=== PATIENT | female | born 1980 | race Caucasian/White ===

== ENCOUNTER 2019-04-23 14:41 | Outpatient (CLI) | payer MEDICAID, SELFPAY | END 2019-04-23 15:01 | PROVIDERS: PCP Family Medicine; Visit Provider Family Medicine | DX: R69 Illness, unspecified (principal) ==

== ENCOUNTER 2019-08-21 11:49 | Emergency (ER) | payer MEDICAID, SELFPAY ==
[2019-08-21 11:52] VITALS: BP 170/116; PULSE 129; RESP 20; TEMP 36.8; O2SAT 98
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
[2019-08-21] MEDS: LORazepam 1 MG TAB PO (12:18)
[2019-08-21 12:23] LABS: Bilirubin Small (Negative); Blood Trace-intact (Negative); Clarity Sl Cloudy (Clear); Glucose Negative (Negative); Ketones 40 mg/dL (Negative); Leukocyte Esterase Negative (Negative); Nitrite Negative (Negative); Specific Gravity >= 1.030 (1.005-1.025); Urobilinogen 0.2 EU/dL (Up TO 0.2); pH 5.5 (5-8)
--- NOTE | 2019-08-21 12:33 | NUR.NOTE ---
Nursing Note: mental health has arrived.
[2019-08-21 12:39] LABS: *AMPHETAMINES SCREEN URINE Negative (Negative); *BARBITURATES SCREEN URINE Negative (Negative); *BENZODIAZEPINES SCREEN URINE Negative (Negative); Cannabinoids THC POSITIVE (Negative); Cocaine Screen,Urine Negative (Negative); METHADONE URINE SCREEN Negative (Negative); OPIATES URINE SCREEN Negative (Negative)
[2019-08-21 12:44] LABS: Tricyclic Antidepressants Negative (Negative)
[2019-08-21 12:45] LABS: C & S Indicated? No/Sq. Contamination
[2019-08-21 13:19] LABS: ALT 27 U/L (14-59); AST 19 U/L (15-37); Albumin 4.1 g/dL (3.4-5.0); Alkaline Phosphatase 74 U/L (46-116); Anion Gap 10.5 mmol/L (3-11); BUN 17 mg/dL (7-18); Bilirubin, Total 0.6 mg/dL (0.2-1.0); CO2 26.5 mmol/L (21.0-32.0); CREATININE 0.76 mg/dL (0.55-1.02); Calcium 8.7 mg/dL (8.5-10.1); Chloride 107 mmol/L (98-107); ETHANOL BLOOD < 3.0 mg/dL (<3); Glucose 91 mg/dL (74-106); Potassium 3.6 mmol/L (3.5-5.1); Sodium 144 mmol/L (136-145); TSH (W/Ref FT4) 0.69 uIU/mL (0.36-3.74); Total Protein 7.1 g/dL (6.4-8.2)
[2019-08-21 13:24] LABS: Acetaminophen < 2 ug/mL (10-30)
[2019-08-21 13:43] VITALS: BP 130/79; PULSE 85; RESP 22; TEMP 36.8; O2SAT 98
[2019-08-21] MEDS: Ondansetron O.D.T. 4 MG TABEF PO (13:44)
--- NOTE | 2019-08-21 13:47 | NUR.NOTE ---
Nursing Note: Pt states she felt weird and nauseas. VS obtained and WNL. made aware of pt vomitting up lunch in emesis bag- mostly fluids with some undigested food. Zofran 4mg ODT given per verbal order. Pt states she received her suboxone this morning and hasnt missed any doses, denies any other illicit drug use or medication use that could cause withdrawal symptoms.
== END 2019-08-21 14:55 | disposition other institution (70) ==
PROVIDERS: Emergency Provider Emergency Medicine; PCP Family Medicine
DX: F41.8 Other specified anxiety disorders (principal); S70.12XA Contusion of left thigh, initial encounter; F90.9 Attention-deficit hyperactivity disorder, unspecified type; W50.0XXA Accidental hit or strike by another person, initial encounter
CPT/HCPCS: 36415; 80053; 80307; 81025; 99283; 80320; 80329; 81003; 81015; 84443

== ENCOUNTER 2020-01-03 12:18 | Outpatient (CLI) | payer MEDICAID, SELFPAY ==
[2020-01-05 12:20] LABS: SARS-CoV-2 RNA Undetected (Undetected); SARS-CoV-2 Specimen Source Nasopharynx
== END 2020-01-03 12:38 ==
PROVIDERS: PCP Family Medicine; Visit Provider Family Medicine
DX: R05 Cough (principal); R50.9 Fever, unspecified; Z11.59 Encounter for screening for other viral diseases
CPT/HCPCS: 87449; U0003

== ENCOUNTER 2020-03-04 08:26 | Outpatient (CLI) | payer MEDICAID, SELFPAY ==
[2020-03-05 12:56] LABS: COVID-19 RT-PCR Result NEGATIVE (Negative)
== END 2020-03-04 08:46 ==
PROVIDERS: PCP Family Medicine; Visit Provider Family Medicine
DX: Z11.59 Encounter for screening for other viral diseases (principal)
CPT/HCPCS: U0003

== ENCOUNTER 2020-12-06 17:21 | Inpatient (IN) | payer MEDICAID, SELFPAY ==
--- NOTE | 2020-12-06 17:27 | NUR.NOTE ---
Nursing Note: PTS DAUGHTER [phone]
[2020-12-06 17:36] VITALS: BP 130/64; PULSE 121; RESP 16; TEMP 37.1; O2SAT 98
--- NOTE | 2020-12-06 17:43 | ED.GENADUL_ITS ---
Discharge Plan Disposition Patient Disposition: [facility] INPATIENT Condition: Stable Discharge Details Chief Complaint: PsychEval Clinical Impression: Depression Primary Care Provider: Emmanuel Morales ED Provider: Joshua Cassidy Home Meds and New Rx's Prescriptions: No Action dicyclomine 10 mg capsule 10 mg PO TID Qty: 90 RF: 5 bacitracin zinc [Antibiotic (bacitracin zinc)] 500 unit/gram ointment 1 applic TP Q12H Qty: 56 RF: 0 Daily Probiotic (S. boulardii) 250 mg capsule 250 mg PO BID Qty: 60 RF: 5 buprenorphine-naloxone 8-2 mg tablet, sublingual 10 mg Sublingual DAILY RF: 0 albuterol sulfate [Ventolin HFA] 90 mcg/actuation HFA aerosol inhaler 2 puff IH QID PRN (Reason: shortness of breath or wheezing) Qty: 6.7 RF: 1 methylphenidate HCl [Ritalin] 20 mg Tablet 20 mg PO TID RF: 0 gabapentin 600 mg tablet 600 mg PO BID RF: 0 clonidine HCl 0.1 mg tablet 0.1 mg PO TID RF: 0 Medical Decision Making 40-year-old female presents from home complaining of anxiety, worsening mood, thoughts of harming herself. She denies any specific plan. She notes poor sleep, easily brought to tears, and relates this due to stress of being currently homeless. She is stable. Exam does reveal a small area of excoriated skin on her left buttock. This was dressed with bacitracin and a Band-Aid. She is given 1 mg of Ativan for anxiolysis. She underwent medical screening examination including laboratory analysis. She is medically stable for further psychiatric evaluation. Care management was consulted and care plan initiated. Patient's diagnostic studies are reassuring. CBC shows a white count of 9, hematocrit 38, platelets 210. Chemistries with unremarkable BUN and creatinine. Alcohol level negative. Urine drug screen positive for THC. Following interview with mental health screener, patient agrees to voluntary admission awaiting psychiatric disposition. HPI General Mode of arrival: ambulatory . Date/Time Provider Initiated Documentation: 12/06/20 17:22 . Limitations to Documentation: no limitations . Information obtained by: patient . History of Present Illness 40 year old F presents to the emergency department with the chief complaint of Anxiety, suicidal ideation, described as moderate, Quality is described as constant, Patient reports no radiation. Patient started experiencing this day(s) and it has been constant. No relieving factors improve symptom(s), No exacerbating factors reported . Patient notes loss of appetite and other (Poor sleep, tearful). Patient did receive the following treatments prior to arrival, none Related Data Home Medications Medication Instructions Recorded Confirmed buprenorphine 8 mg-naloxone 2 mg 10 mg SUBLINGUAL DAILY tab 04/17/19 12/06/20 sublingual tablet methylphenidate HCl [Ritalin] 20 mg PO TID 08/21/19 02/04/20 Saccharomyces boulardii 250 mg 250 mg PO BID #60 cap 02/04/20 02/04/20 capsule bacitracin zinc 500 unit/gram 1 applic TP Q12H #56 gm 02/04/20 02/04/20 topical ointment dicyclomine 10 mg capsule 10 mg PO TID #90 cap 02/04/20 02/04/20 albuterol sulfate 90 mcg/actuation 2 puff IH QID PRN #6.7 gm 06/06/20 aerosol inhaler clonidine HCl 0.1 mg PO TID 12/06/20 12/06/20 gabapentin 600 mg PO BID 12/06/20 12/06/20 Previous Rx's Medication Instructions Recorded Saccharomyces boulardii 250 mg 250 mg PO BID #60 cap 02/04/20 capsule bacitracin zinc 500 unit/gram 1 applic TP Q12H #56 gm 02/04/20 topical ointment dicyclomine 10 mg capsule 10 mg PO TID #90 cap 02/04/20 albuterol sulfate 90 mcg/actuation 2 puff IH QID PRN #6.7 gm 06/06/20 aerosol inhaler Allergies Allergy/AdvReac Type Severity Reaction Status Date / Time morphine Allergy Severe Hives Unverified 12/06/20 17:32 Penicillins Allergy Severe Skin Rash Unverified 12/06/20 17:32 dimethicone Allergy Intermediate Hives Unverified 12/06/20 17:32 [From A \T\ D Emollient] glycerin Allergy Intermediate Hives Unverified 12/06/20 17:32 [From A & D Emollient] stearyl alcohol Allergy Intermediate Hives Unverified 12/06/20 17:32 [From A \T\ D Emollient] codeine Allergy Mild hives Unverified 12/06/20 17:32 Carbapenems Allergy Unknown Unverified 12/06/20 17:32 Cephalosporins Allergy Unknown hives Unverified 12/06/20 17:32 quetiapine fumarate AdvReac Severe swelling Unverified 12/06/20 17:32 [From Seroquel] lisdexamfetamine AdvReac Intermediate arm pain; Verified 12/06/20 17:32 [From Vyvanse] menorrhagia promethazine AdvReac Intermediate anxiety Unverified 12/06/20 17:32 dinoprostone AdvReac Unknown Unverified 12/06/20 17:32 General Stated Complaint: PsychEval MICHAEL: 2 Review of Systems Narrative: 6 systems reviewed and otherwise negative [facility] Medical History (Updated 12/06/20 @ 19:38 by Joshua Cassidy MD) Abdominal pain Nausea Surgical History Cholecystectomy Oophrectomy, Both Family History Mother Alcohol abuse Father Alcohol abuse Brother No problems noted. Grandfather No problems noted. Grandfather Heart disease Grandmother Personal history of malignant neoplasm Grandmother No problems noted. Social History Smoking/Tobacco Use Status: Current every day Smoking risk assessment performed?: Yes Alcohol Intake: former Drug use: Occasionally Substance use type: marijuana Do you feel safe at home: Yes Do you feel safe in your relationship?: Yes Exam Narrative Exam Narrative: GEN: awake, alert, oriented 3. Pleasant, well groomed, interactive. HEAD: Normocephalic, atraumatic ENT: Mucous membranes moist, oropharynx unremarkable, External ear exam unremarkable EYES: PERRL, EOMI NECK: Full ROM, no HANG, no menigismus CHEST/RESP: Nontender, clear to auscultation bilateral, no wheeze/rhonchi/rales CARDIOVASCULAR: Regular and tachycardic, no murmur, rub franky. 2+ Rad pulse bilateral ABDOMEN: Soft, nontender, no mass. +Bowel sounds EXT: Full ROM, no edema, left posterior/superior buttock with 1 cm diameter excoriated area of skin. Neuro: Grossly normal neurologic exam, conversant, interactive. Psych: Speech pressured at times, thoughts congruent, affect anxious and tearful Course Vital Signs Vital signs: Vital Signs Temperature 37.1 C 12/06/20 17:36 Pulse 121 H 12/06/20 17:36 Respiratory Rate 16 12/06/20 17:36 Blood Pressure 130/64 12/06/20 17:36 Pulse Oximetry 98 12/06/20 17:36 Temperature 37.1 C 12/06/20 17:36 Temperature Source Oral 12/06/20 17:36 Pulse 121 H 12/06/20 17:36 Respiratory Rate 16 12/06/20 17:36 Respiratory Effort 12/06/20 17:41 Blood Pressure 130/64 12/06/20 17:36 Blood Pressure Position Sitting 12/06/20 17:36 Pulse Oximetry 98 12/06/20 17:36 Oxygen Delivery Method Room Air 12/06/20 17:36 Oxygen Flow Rate 0 12/06/20 17:36 Pain Level 5 12/06/20 17:36 Comment 12/06/20 17:36
[2020-12-06] MEDS: LORazepam 1 MG TAB PO (17:48)
--- NOTE | 2020-12-06 18:04 | NUR.NOTE ---
Nursing Note: this RN places pt's medication x 3 bottles and wallet into belongings bag with pt label on, bag placed in secure location.
[2020-12-06 18:06] LABS: Bilirubin Negative (Negative); Blood Negative (Negative); Clarity Clear (Clear); Glucose Negative (Negative); Ketones Negative (Negative); Leukocyte Esterase Negative (Negative); Nitrite Negative (Negative); Urobilinogen 0.2 EU/dL (Up TO 0.2); pH 6.5 (5-8)
--- NOTE | 2020-12-06 18:12 | CMSP_ITS ---
- If Service Date Differs Date of service: 12/06/20 Time of Service: 18:13 Care Management Safety Plan Status: Voluntary Chief Complaint: Linda is a 40 year old female who is homeless. She presents in the ED today due to suicidal ideation and fears she is having a nervous breakdown. Patient is confused and presents as manic with disorganized thinking. Linda met with Annie, [facility] crisis screener, via zoom for an assessment. Annie reports Linda could not be properly assessed due to her inability to think clearly. Linda is, therefore, remaining at [facility] voluntarily for the night with a plan for [facility] to reassess her in the morning. VOLUNTARY FOR INPATIENT PSYCHIATRIC STABILIZATION. Patient is appropriate in all interactions since arriving at [facility]; Pt has demonstrated appropriate coping and communication skills, has articulated his or her needs and concerns and is fully engaged during staff interactions. Safety plan has been established with patient, and care team, to adhere to patient goals, identify restrictions based on behavioral status, address nutrition, and determine allowed personal belongings, tools for hygiene and personal care. Determine level of activity including ambulation, level of supervision, visitors, and determine privileges based on behaviors and level of engagement by pt. SAFETY PLAN: 1. Will remain on suicide precautions and in paper clothes. 2. Will remain in room under direct supervision of one-on-one staff at all times provided by [employer], ANALYTICAL ENGINEER, HOME SECURITY ALARM INSTALLER active directory architect. 3. May have paper cups, plates, finger foods as well as a cardboard spoon with which to eat meals. 4. Follow [facility] Management of the Admitted Behavioral Health Patient policy. 5. Shower permitted at RN discretion. 6. No personal belongings. 7. No visitors per [facility] Covid Policy. 8. Activities: Television when available, coloring books, crayons, and other activities at nursing discretion. 9. Bathroom privileges: Must be accompanied by staff while in the ED. If moved to Med/Surg, may use the bathroom available in the room without supervision. 10. Phone use at RN discretion. 11. Due to VOLUNTARY status, if patient wishes to leave [facility], staff will contact [facility] Crisis Screener ([phone]) and On-Call Mold Dumper ([phone]) as soon as possible. In the event of elopement, notify [facility] Police ([phone]). Patient is currently voluntarily at [facility] and seeking inpatient admission when a bed becomes available. [facility] Frontline Cold Header will continue seeking placement. Please contact the Shot Man Mold Dumper ([phone]) and [facility] Cold Header ([phone]) for any needed changes in the Safety Plan. Safety plan has been provided to interdepartmental care team.
--- NOTE | 2020-12-06 18:12 | PDOC.CMSAFED ---
- If Service Date Differs Date of service: 12/06/20 Time of Service: 18:13 Care Management Safety Plan Status: Voluntary Chief Complaint: Linda is a 40 year old female who is homeless. She presents in the ED today due to suicidal ideation and fears she is having a nervous breakdown. Patient is confused and presents as manic with disorganized thinking. Linda met with Annie, [facility] crisis screener, via zoom for an assessment. Annie reports Linda could not be properly assessed due to her inability to think clearly. Linda is, therefore, remaining at [facility] voluntarily for the night with a plan for [facility] to reassess her in the morning. VOLUNTARY FOR INPATIENT PSYCHIATRIC STABILIZATION. Patient is appropriate in all interactions since arriving at [facility]; Pt has demonstrated appropriate coping and communication skills, has articulated his or her needs and concerns and is fully engaged during staff interactions. Safety plan has been established with patient, and care team, to adhere to patient goals, identify restrictions based on behavioral status, address nutrition, and determine allowed personal belongings, tools for hygiene and personal care. Determine level of activity including ambulation, level of supervision, visitors, and determine privileges based on behaviors and level of engagement by pt. SAFETY PLAN: 1. Will remain on suicide precautions and in paper clothes. 2. Will remain in room under direct supervision of one-on-one staff at all times provided by [employer], KEYBOARD INSTRUMENT TUNER, BAR TACKER SEWING MACHINE lookback coordinator. 3. May have paper cups, plates, finger foods as well as a cardboard spoon with which to eat meals. 4. Follow [facility] Management of the Admitted Behavioral Health Patient policy. 5. Shower permitted at RN discretion. 6. No personal belongings. 7. No visitors per [facility] Covid Policy. 8. Activities: Television when available, coloring books, crayons, and other activities at nursing discretion. 9. Bathroom privileges: Must be accompanied by staff while in the ED. If moved to Med/Surg, may use the bathroom available in the room without supervision. 10. Phone use at RN discretion. 11. Due to VOLUNTARY status, if patient wishes to leave [facility], staff will contact [facility] Crisis Screener ([phone]) and On-Call Electronic Security Specialist ([phone]) as soon as possible. In the event of elopement, notify [facility] Police ([phone]). Patient is currently voluntarily at [facility] and seeking inpatient admission when a bed becomes available. [facility] Frontline Linen Folder will continue seeking placement. Please contact the Diaper Folder Electronic Security Specialist ([phone]) and [facility] Linen Folder ([phone]) for any needed changes in the Safety Plan. Safety plan has been provided to interdepartmental care team.
[2020-12-06 18:20] LABS: *AMPHETAMINES SCREEN URINE Negative (Negative); *BARBITURATES SCREEN URINE Negative (Negative); *BENZODIAZEPINES SCREEN URINE Negative (Negative); Cannabinoids THC POSITIVE (Negative); Cocaine Screen,Urine Negative (Negative); METHADONE URINE SCREEN Negative (Negative); OPIATES URINE SCREEN Negative (Negative)
[2020-12-06 18:21] LABS: Abs Immature Grans 0.02 10^3/uL (0.0-0.06); Absolute Basophil Count 0.09 10^3/uL (0.0-0.2); Absolute Eosinophil Count 0.24 10^3/uL (0.0-0.7); Absolute Lymphocyte Count 1.92 10^3/uL (1.2-3.4); Absolute Neutrophil Count 6.77 10^3/uL (1.2-6.7); Basophils % 0.9; Eosinophils % 2.5; HCT 38.2 % (36.0-46.0); HGB 12.6 g/dL (11.2-15.7); Immature Grans % 0.2; Lymphocytes % 19.9; MCH 30.4 pg (27.0-33.0); MPV 10.6 fL (8.0-11.0); Monocytes % 6.2; Neutrophils % 70.3; Nucleated RBC 0 %; Platelet Count 210 10^3/uL (130-400); RBC 4.15 10^6/uL (3.93-5.22); RDW 12.9 % (11.7-14.6); RDW-SD 43.7 fL; WBC 9.64 10^3/uL (4.4-10.8)
[2020-12-06 18:24] LABS: Tricyclic Antidepressants Negative (Negative)
[2020-12-06 18:43] LABS: ALT 20 U/L (14-59); AST 12 U/L (15-37); Albumin 3.5 g/dL (3.4-5.0); Alkaline Phosphatase 80 U/L (46-116); Anion Gap 9.8 mmol/L (3-11); BUN 15 mg/dL (7-18); Bilirubin, Total 0.4 mg/dL (0.2-1.0); CO2 24.2 mmol/L (21.0-32.0); CREATININE 0.8 mg/dL (0.55-1.02); Calcium 8.4 mg/dL (8.5-10.1); Chloride 106 mmol/L (98-107); Glucose 116 mg/dL (74-106); Potassium 4.1 mmol/L (3.5-5.1); Sodium 140 mmol/L (136-145); Total Protein 6.7 g/dL (6.4-8.2)
[2020-12-06 18:53] LABS: Acetaminophen 10 ug/mL (10-30); Salicylate 4.6 mg/dL (<2.8)
[2020-12-06 18:55] LABS: ETHANOL BLOOD < 3.0 mg/dL (<3)
[2020-12-06 19:06] LABS: COVID-19 PCR Negative (Negative); Influenza A PCR Negative (Negative); Influenza B PCR Negative (Negative); RSV PCR Negative (Negative)
--- NOTE | 2020-12-06 19:33 | PDOC.MHCN ---
Date of service: 12/06/20 Time of Service: 19:34 Mental Health Crisis Note Presenting Issue How did you arrive at the ED and why did you come: Pt arrivved tonight via her daughter due to complaints of being confused and feeling crazy. Precipitating Factors Pt denied SI and HI stating she has had thoughts but no real plan. She said that if she did have a plan it would have been done already. Disposition BEHAVIOR: Pt is trying to be engaged in the assessment however, clearly is struggling to do so. She is unable to organize her thoughts and is very emotional. EYE CONTACT: Pt's eye contact is sporadic as she is unable to sit still. MOOD: Pt reported that she feels that she is manic. She is presenting as manic to [facility] clinician as well. AFFECT: Pt's affect appears anxious and scared, APPETITE: Pt reported her apetite is poor. SLEEP(trouble falling/staying asleep: Pt reported her sleep is poor. Plan Unable to do a full plan of action with Pt as she is getting increasingly agitated through the assessment as she is unable to think clearly. She is agreeable to inpatient treatment. This clinician will re-assess t he Pt tomorrow and hopefully we can complete an assessment. This was shared with the ER doctor and critical care physician. Signature Clinician's Name/Title: Annie mSith MS, [facility] Emergency Services Clinician, [facility]
--- NOTE | 2020-12-06 20:02 | HPE_ITS ---
Date of service: 12/06/20 Time of Service: 20:03 Assessment and Plan Assessment and plan (1) Depression: Status: Chronic Assessment and plan: With SI and anxiety. Exacerbating factors of homelessness but staying with her grandmother, drug abuse disorder. Voluntary admission. PRN Ativan and/or Atarax for anxiety. Mental health screen completed. Disposition to inpatient psychiatric facility when bed available. Qualifiers: Active/Remission status: currently active Depression Type: major depressive disorder Major depression episode severity: severe Major depression recurrence: recurrent (2) IBS (irritable bowel syndrome): Status: Chronic Assessment and plan: Does now c/o mild abd discomfort Previously on dicyclomine 10mg po TID; will initiate. (3) Asthma: Status: Acute Assessment and plan: + tobacco use. No current exacerbation. PRN albuterol MDI (4) Smoker: Status: Acute Assessment and plan: Nicoderm patch prn if she desires; currently declines. (5) Substance abuse: Status: Acute Assessment and plan: Cont home buprenorphine/naloxone 8mg/2mg QAM at 0500. (6) Attention deficit hyperactivity disorder: Status: Acute Assessment and plan: Ritalin 20mg TID on home med list; continue. History of Present Illness History of Present Illness Chief Complaint: Suicidal ideation Narrative: This is a 40 year old female with a medical history of substance abuse, depression, ADHD, asthma, IBS, tobacco abuse. She presented to the emergency department with the chief complaint of Anxiety, suicidal ideation w/o a specific plan. She relates stress d/t being homeless. In the ED she was given 1 mg of Ativan for her anxiety. CBC and chemistries were unremarkable. Alcohol level was negative. Urine drug screen positive for THC. She was evaluated by mental health screener. She agrees to a voluntary admission with plan for transfer to a psychiatric facility. No fever, SOA, CP, N/V/abd pain, dysuria. No headache, visual changes. Deangelo endorses intermittent hot flashes and is currently experiencing them. Review of Systems All systems reviewed & are unremarkable except as noted in HPI and below [facility] Medical History (Updated 12/06/20 @ 20:13 by Naeem Lange MD) Abdominal pain Nausea Surgical History Cholecystectomy Oophrectomy, Both Family History Mother Alcohol abuse Father Alcohol abuse Brother No problems noted. Grandfather No problems noted. Grandfather Heart disease Grandmother Personal history of malignant neoplasm Grandmother No problems noted. Social History Smoking/Tobacco Use Status: Current every day Smoking risk assessment performed?: Yes Alcohol Intake: former Drug use: Occasionally Substance use type: marijuana Do you feel safe at home: Yes Do you feel safe in your relationship?: Yes Meds Home Medications and Allergies Allergies Allergy/AdvReac Type Severity Reaction Status Date / Time morphine Allergy Severe Hives Unverified 12/06/20 17:32 Penicillins Allergy Severe Skin Rash Unverified 12/06/20 17:32 dimethicone Allergy Intermediate Hives Unverified 12/06/20 17:32 [From A \T\ D Emollient] glycerin Allergy Intermediate Hives Unverified 12/06/20 17:32 [From A & D Emollient] stearyl alcohol Allergy Intermediate Hives Unverified 12/06/20 17:32 [From A \T\ D Emollient] codeine Allergy Mild hives Unverified 12/06/20 17:32 Carbapenems Allergy Unknown Unverified 12/06/20 17:32 Cephalosporins Allergy Unknown hives Unverified 12/06/20 17:32 quetiapine fumarate AdvReac Severe swelling Unverified 12/06/20 17:32 [From Seroquel] lisdexamfetamine AdvReac Intermediate arm pain; Verified 12/06/20 17:32 [From Vyvanse] menorrhagia promethazine AdvReac Intermediate anxiety Unverified 12/06/20 17:32 dinoprostone AdvReac Unknown Unverified 12/06/20 17:32 Home Medications Medication Instructions Recorded Confirmed Type buprenorphine 8 mg-naloxone 2 mg 10 mg SUBLINGUAL DAILY tab 04/17/19 12/06/20 History sublingual tablet methylphenidate HCl [Ritalin] 20 mg PO TID 08/21/19 02/04/20 History Saccharomyces boulardii 250 mg 250 mg PO BID #60 cap 02/04/20 02/04/20 Rx capsule bacitracin zinc 500 unit/gram 1 applic TP Q12H #56 gm 02/04/20 02/04/20 Rx topical ointment dicyclomine 10 mg capsule 10 mg PO TID #90 cap 02/04/20 02/04/20 Rx albuterol sulfate 90 mcg/actuation 2 puff IH QID PRN #6.7 gm 06/06/20 Rx aerosol inhaler clonidine HCl 0.1 mg PO TID 12/06/20 12/06/20 History gabapentin 600 mg PO BID 12/06/20 12/06/20 History Exam Const General: cooperative, anxious and diaphoretic Nutritional Appearance: thin Orientation: alert and oriented x3 Eyes Sclera: sclerae normal Pupils: PERRL Resp Effort & Inspection: normal respiratory effort Auscultation: clear to auscultation bilaterally Cardio Rate: regular rate Rhythm: regular rhythm Heart Sounds: S1 normal and S2 normal GI Palpation: soft and nontender Auscultation: normal bowel sounds Neuro General: moves all extremities Cranial Nerves: CN's II-XI intact bilaterally Cognition: normal cognition Speech: speech normal Extrem General: no pedal edema and no calf tenderness Psych Appearance: disheveled Mood: anxious mood Affect: anxious affect Thought Process: normal Results Labs Result diagrams: 12/06/20 18:15 12/06/20 18:15 Labs: Laboratory Results - last 24 hr 12/06/20 12/06/20 12/06/20 17:55 17:55 18:05 WBC RBC Hgb Hct MCV MCH MCHC RDW Plt Count MPV Immature Gran % Neutrophils % Lymphocytes % Monocytes % Eosinophils % Basophils % Nucleated RBC % Absolute Neutrophils Absolute Lymphocytes Absolute Monocytes Absolute Eosinophils Absolute Basophils Sodium Potassium Chloride Carbon Dioxide Anion Gap BUN Creatinine Estimated GFR/1.73 m2 Glucose Calcium Total Bilirubin AST ALT Alkaline Phosphatase Total Protein Albumin TSH Urine Color Yellow Urine Clarity Clear Urine pH 6.5 Ur Specific [place] 1.010 Urine Protein Negative Urine Ketones Negative Urine Blood Negative Urine Nitrite Negative Urine Bilirubin Negative Urine Urobilinogen 0.2 Ur Leukocyte Esterase Negative Urine Glucose Negative Salicylates Urine Opiates Screen Negative Urine Methadone Screen Negative Acetaminophen Ur Barbiturates Screen Negative Ur Tricyclics Screen Negative Ur Amphetamines Screen Negative U Benzodiazepines Scrn Negative Urine Cocaine Screen Negative Ur THC Screen Positive A Ethyl Alcohol COVID-19 Source Nasopharyx SARS-CoV-2 (PCR) Negative Influenza Type A (PCR) Negative Influenza Type B (PCR) Negative RSV (PCR) Negative 12/06/20 12/06/20 12/06/20 18:15 18:15 18:15 WBC 9.64 RBC 4.15 Hgb 12.6 Hct 38.2 MCV 92.0 MCH 30.4 MCHC 33.0 RDW 12.9 Plt Count 210 MPV 10.6 Immature Gran % 0.2 Neutrophils % 70.3 Lymphocytes % 19.9 Monocytes % 6.2 Eosinophils % 2.5 Basophils % 0.9 Nucleated RBC % 0 Absolute Neutrophils 6.77 H Absolute Lymphocytes 1.92 Absolute Monocytes 0.60 Absolute Eosinophils 0.24 Absolute Basophils 0.09 Sodium 140 Potassium 4.1 Chloride 106 Carbon Dioxide 24.2 Anion Gap 9.8 BUN 15 Creatinine 0.8 Estimated GFR/1.73 m2 >= 60.00 Glucose 116 H Calcium 8.4 L Total Bilirubin 0.4 AST 12 L ALT 20 Alkaline Phosphatase 80 Total Protein 6.7 Albumin 3.5 TSH 0.50 Urine Color Urine Clarity Urine pH Ur Specific [place] Urine Protein Urine Ketones Urine Blood Urine Nitrite Urine Bilirubin Urine Urobilinogen Ur Leukocyte Esterase Urine Glucose Salicylates 4.6 Urine Opiates Screen Urine Methadone Screen Acetaminophen 10 Ur Barbiturates Screen Ur Tricyclics Screen Ur Amphetamines Screen U Benzodiazepines Scrn Urine Cocaine Screen Ur THC Screen Ethyl Alcohol < 3.0 COVID-19 Source SARS-CoV-2 (PCR) Influenza Type A (PCR) Influenza Type B (PCR) RSV (PCR) Last Vital Signs Temp 37.1 C 12/06/20 17:36 Pulse 121 H 12/06/20 17:36 Resp 16 12/06/20 17:36 BP 130/64 12/06/20 17:36 Pulse Ox 98 12/06/20 17:36 COVID-19 Screening Have you, or household traveled for leisure in last 14 days?: No Had IN PERSON contact w/suspected or confirmed C-19 person: No
[2020-12-06 20:06] VITALS: BP 100/61; PULSE 74; RESP 14; TEMP 37.3; O2SAT 93
[2020-12-06 21:00] VITALS: BP 93/52; PULSE 63; RESP 16; TEMP 37.2; O2SAT 97
[2020-12-06 21:22] VITALS: BP 93/52; PULSE 63; RESP 17; TEMP 37.2; O2SAT 97
[2020-12-07 01:23] VITALS: BP 129/54
--- NOTE | 2020-12-07 01:29 | NUR.NOTE ---
Nursing Note:At 20:53 hrs.,Pt arrived in room 234, via wheelchair, Alert but drowsy due to sedation done at ER. Placed in stretcher bed and while doing admission questionnaires, pt was already snoring,unable to open eyes even when touched. At 01:00 hrs. She woke up and demanded for food. Peanut butter, jelly & chicken soup given and tolerated it well. Pt was assisted to toilet, she feels weak and druggy still,after she voided, she was holding her tummy and stated of having abdominal cramps. Pt asked for ambien, the technical writer explained that we dont give anymore sleeping after midnight, redirection like watching TV done and no futher voiced complaints.
[2020-12-07 02:40] VITALS: BP 105/63; PULSE 60; RESP 20; TEMP 37.3; O2SAT 98
[2020-12-07 02:58] VITALS: TEMP 37.3
[2020-12-07] MEDS: LORazepam 0.5 MG TAB PO ×2 (02:58→10:58)
[2020-12-07 03:36] VITALS: TEMP 37.3
[2020-12-07] MEDS: Acetaminophen 325 MG TAB 650 MG PO ×2 (03:36→08:05)
[2020-12-07] MEDS: cloNIDine 0.1 MG TAB PO ×2 (03:44→14:04)
[2020-12-07] MEDS: Gabapentin 600 MG TAB PO (03:45)
[2020-12-07] MEDS: Normal Saline 500 ML IV (04:08)
[2020-12-07] MEDS: Nicotine 14 MG/24 HR PATCH TD (04:16)
[2020-12-07] MEDS: Dicyclomine 10 MG CAP PO ×3 (04:24→14:04)
[2020-12-07 04:25] VITALS: BP 130/63; PULSE 96; RESP 13; TEMP 37; O2SAT 99
[2020-12-07] MEDS: Buprenorphine/Naloxone 4 mg/1 mg FILM 0.5 EACH SL (05:19)
[2020-12-07] MEDS: Buprenorphine/Naloxone 8 mg/2 mg FILM 1 EACH SL (05:19)
[2020-12-07 07:25] VITALS: BP 117/69; PULSE 63; RESP 16; TEMP 37.2; O2SAT 98
--- NOTE | 2020-12-07 07:45 | RT.EKG_ITS ---
APPROVED REPORT Exam: Resting ECG Patient Location: I HR:52 bpm ECG Measurements Heart Rate 52 AXIS AL 115 P 47 QRSd 79 QRS 75 QT 410 T 51 QTc 374 Conclusion Sinus bradycardia...rate< 60 Atrial premature complex...SV complex w/ short R-R interval
[2020-12-07] MEDS: hydrOXYzine HCL 25 MG TAB PO (08:05)
[2020-12-07] MEDS: Methylphenidate 10 MG TAB 20 MG PO ×2 (08:05→11:48)
--- NOTE | 2020-12-07 09:00 | DI.RAD_ITS ---
EXAM: XR PORTABLE CHEST AP CLINICAL HISTORY: Dyspnea, chest pain TECHNIQUE: 2D digital imaging was performed. COMPARISON: No exams were available for comparison FINDINGS: MEDIASTINUM: Normal. HEART: Normal. PULMONARY VASCULATURE: Normal. LUNGS: Clear. PLEURAL SPACE: No pleural effusion or pneumothorax. BONE:Within normal limits for the patient's age. OTHER FINDINGS:Normal. IMPRESSION: No acute pulmonary findings. DATA REPOSITORY: RADIATION DOSE DELIVERED:
[2020-12-07 09:54] LABS: D-Dimer 375 ng/mlFEU (<500)
[2020-12-07] MEDS: Albuterol HFA 8 GM 60 PUFF INH IH (10:25)
--- NOTE | 2020-12-07 11:24 | DI.VRAD_ITS ---
PROCEDURE INFORMATION: Exam: XR Chest Exam date and time: 12/07/2020 11:15 AM Age: 40 years old Clinical indication: Other: Dyspnea, chest pain TECHNIQUE: Imaging protocol: XR of the chest Views: 1 view. COMPARISON: No relevant prior studies available. FINDINGS: Lungs: Unremarkable. No consolidation. Pleural spaces: Unremarkable. No pleural effusion. No pneumothorax. Heart/Mediastinum: Unremarkable. No cardiomegaly. Bones/joints: Unremarkable. IMPRESSION: No acute findings. Dictated and Authenticated by: Kt Phan MD. Ordering:ROBERT[facility] Nena Hyde MD
--- NOTE | 2020-12-07 13:01 | PDOC.CMDIS ---
- If Service Date Differs Date of service: 12/07/20 Time of Service: 13:01 LACE Index Scoring Tool - Questions: Length of Stay (in days): 1 Acuity (Admit via E.D.?): Yes E.D. Visits: 1 - Answers: Total Score: 5 Risk of Readmission: Low Risk Care Management Discharge Reason for Hospitalization: Depression, suicidal ideation. Discharge Plan: Linda is discharged home. She will follow up with Edwina Kerns, psych specialist at [facility], on Tuesday, December 08, 2020 at 8:00 am. Linda will also check-in by telephone with [facility] emergency services this evening. She is driven home by her daughter, Bekah, via private vehicle. Patient/Family Education Needs: Nursing will review discharge instructions and follow up plan of care with patient. - MH Services (Omit if N/A) Current MH Services: [facility]
--- NOTE | 2020-12-07 13:32 | MHPN_ITS ---
Date of service: 12/07/20 Time of Service: 13:32 Mental Health Crisis Note Presenting Issue How did you arrive at the ED and why did you come: Pt arrived last night via her daughter for evaluation and placement. Precipitating Factors Pt deneid SI and HI. She denied plan and intent. Pt identified her children as her deterrents. Disposition BEHAVIOR: Pt is cooperative and engaged. She is presenting as less anxious as she was last night. EYE CONTACT: Pt makes good eye contact MOOD: Pt reported that she is still anxious but feeling much better. AFFECT: Affect is normal APPETITE: Pt reported appetite has decreased. SLEEP(trouble falling/staying asleep: Pt reported poor sleep in general. Plan Pt reported that she knows she is in crisis when she becomes hyper anxious and unable to think and speak. She reported that when she gets that way she goes to the hospital. She did not identify any natural supports and her professional ones are through [facility]. She does not have any thing she does for self-care. She stated the one thing worth living for is her kids. She is not currently working with anyone for counseling so this clinician will put a referral in for her. She has a scheduled appointment with a PMHNP, Edwina Kerns tomorrow at 8:30am that will be her first appointment since Almita Weaver left [facility]. She agrees to call this evening for a check in and was reminded of [facility]' 28/04 crisis line should she need additional supports. Signature Clinician's Name/Title: Annie Smith MS, [facility] Emergency Services Clinician, [facility]
--- NOTE | 2020-12-07 13:52 | DSE_ITS ---
Date of service: 12/07/20 Time of Service: 13:52 DS: Diagnosis Discharge Diagnosis (1) Depression: Status: Chronic Asessment and Plan: Situational exacerbation secondary to recent homelessness. She is living with her grandmother. (2) IBS (irritable bowel syndrome): Status: Chronic Asessment and Plan: Resume dicyclomine and probiotics. (3) Asthma: Status: Acute Asessment and Plan: Stable. Worsened by ongoing tobacco use. (4) Smoker: Status: Acute Asessment and Plan: Smoking cessation encouraged. (5) Substance abuse: Status: Acute Asessment and Plan: THC on urine drug screen. (6) Attention deficit hyperactivity disorder: Status: Acute Asessment and Plan: Continues on Ritalin 3 times daily. Discharge Plan Disposition Patient Disposition: HOME Condition: Stable Discharge Details Reason For Visit: DEPRESSION, SUICIDAL IDEATIONS Admit Date/Time: 12/06/20 19:54 Admit Provider: Naeem Lange Attending Provider: Naeem Lange Primary Care Provider: Emmanuel Morales [facility] Course Hospital Course: 40-year-old female admitted for suicidal ideation. She has been troubled with perimenopausal symptoms, anxiety, diaphoresis, all exacerbated by recent homelessness. She has a history of illicit substance abuse but is only using marijuana at this time. She was seen by [facility] human services and is felt to be stable to return home with a plan for follow-up. She is to resume her usual medications. She has labs pending for estradiol and FSH. Home Meds and New Rx's Prescriptions: Continued dicyclomine 10 mg capsule 10 mg PO TID Qty: 90 RF: 5 bacitracin zinc [Antibiotic (bacitracin zinc)] 500 unit/gram ointment 1 applic TP Q12H Qty: 56 RF: 0 Daily Probiotic (S. boulardii) 250 mg capsule 250 mg PO BID Qty: 60 RF: 5 buprenorphine-naloxone 8-2 mg tablet, sublingual 10 mg Sublingual DAILY RF: 0 albuterol sulfate [Ventolin HFA] 90 mcg/actuation HFA aerosol inhaler 2 puff IH QID PRN (Reason: shortness of breath or wheezing) Qty: 6.7 RF: 1 methylphenidate HCl [Ritalin] 20 mg Tablet 20 mg PO TID RF: 0 gabapentin 600 mg tablet 600 mg PO BID RF: 0 clonidine HCl 0.1 mg tablet 0.1 mg PO TID RF: 0 Discharge Instructions Instructions: Menopause (GEN), Depression (DC) Additional Instructions: Call [facility] on Tuesday for follow-up appointment Stand Alone Forms: Nursing Discharge Form Referrals: Edwina Kerns [ [facility] STAFF PHYSICIAN] - 12/08/20 8:00 am (Call [facility] at [phone] tonight before 8:00pm for check-in call. ) Activity:: Activity as Tolerated Equipment/Supplies:: No Equipment Needed Diet:: As Tolerated Discharge Orders Discharge Orders: Discharge Order (Routine); Ordered 12/07/20 Ordered By: Todd Hayward DS: Summary Summary Time spent discussing smoking cessation with patient: 3 to 10 minutes Time Spent with Patient providing and/or coordinating discharge services: Greater than 30 minutes Status at Discharge Functional status at discharge: independent ambulation Overall status at discharge: patient is back to baseline Mental Status: mental status grossly normal Speech and Movement: speech and movement normal Mood: anxious mood Affect: normal affect Exam Narrative Exam Narrative: Patient lying quietly on the gurney in no apparent distress. She interacts well. She shows a full affect. She did appear somewhat anxious. She had no respiratory difficulties. Her skin was clear and free of any rashes. She was mildly diaphoretic. Psych Mental Status: mental status grossly normal Speech and Movement: speech and movement normal Mood: anxious mood Affect: normal affect DS: Data Vitals/I&O Vitals and I&O: Vital Signs Temperature 37.2 C 12/07/20 07:25 Temperature Source Skin 12/07/20 07:25 Pulse 63 12/07/20 07:25 Respiratory Rate 16 12/07/20 07:25 Respiratory Effort Non-Labored 12/06/20 21:22 Respiratory Depth Normal 12/06/20 21:22 Respiratory Pattern Normal 12/06/20 21:22 Blood Pressure 117/69 12/07/20 07:25 Blood Pressure Position Sitting 12/06/20 17:36 Pulse Oximetry 98 12/07/20 07:25 Oxygen Delivery Method Room Air 12/07/20 07:25 Oxygen Flow Rate 0 12/07/20 07:25 Pain Level 0 12/07/20 11:50 Comment 12/07/20 11:50 Intake & Output 12/06/20 12/07/20 12/07/20 23:59 11:59 23:59 Intake Total 600 / 880 280 / 880 Balance 600 / 880 280 / 880 Weight 55.7 kg Intake: Oral 600 / 880 280 / 880 Other: Urine Color Yellow Urine Appearance Clear Voiding Methods Toilet Data Completed and Pending Labs on day of discharge: Labs from last 24 hours 12/07/20 12/07/20 12/06/20 09:10 09:10 18:15 WBC 9.64 RBC 4.15 Hgb 12.6 Hct 38.2 MCV 92.0 MCH 30.4 MCHC 33.0 RDW 12.9 Plt Count 210 MPV 10.6 Immature Gran % 0.2 Neutrophils % 70.3 Lymphocytes % 19.9 Monocytes % 6.2 Eosinophils % 2.5 Basophils % 0.9 Nucleated RBC % 0 Absolute Neutrophils 6.77 H Absolute Lymphocytes 1.92 Absolute Monocytes 0.60 Absolute Eosinophils 0.24 Absolute Basophils 0.09 D-Dimer 375 Sodium Potassium Chloride Carbon Dioxide Anion Gap BUN Creatinine Estimated GFR/1.73 m2 Glucose Calcium Total Bilirubin AST ALT Alkaline Phosphatase Total Protein Albumin TSH Total Estradiol Pending FSH Pending Urine Color Urine Clarity Urine pH Ur Specific [place] Urine Protein Urine Ketones Urine Blood Urine Nitrite Urine Bilirubin Urine Urobilinogen Ur Leukocyte Esterase Urine Glucose Salicylates Urine Opiates Screen Urine Methadone Screen Acetaminophen Ur Barbiturates Screen Ur Tricyclics Screen Ur Amphetamines Screen U Benzodiazepines Scrn Urine Cocaine Screen Ur THC Screen Ethyl Alcohol COVID-19 Source SARS-CoV-2 (PCR) Influenza Type A (PCR) Influenza Type B (PCR) RSV (PCR) 12/06/20 12/06/20 12/06/20 18:15 18:15 18:05 WBC RBC Hgb Hct MCV MCH MCHC RDW Plt Count MPV Immature Gran % Neutrophils % Lymphocytes % Monocytes % Eosinophils % Basophils % Nucleated RBC % Absolute Neutrophils Absolute Lymphocytes Absolute Monocytes Absolute Eosinophils Absolute Basophils D-Dimer Sodium 140 Potassium 4.1 Chloride 106 Carbon Dioxide 24.2 Anion Gap 9.8 BUN 15 Creatinine 0.8 Estimated GFR/1.73 m2 >= 60.00 Glucose 116 H Calcium 8.4 L Total Bilirubin 0.4 AST 12 L ALT 20 Alkaline Phosphatase 80 Total Protein 6.7 Albumin 3.5 TSH 0.50 Total Estradiol FSH Urine Color Urine Clarity Urine pH Ur Specific [place] Urine Protein Urine Ketones Urine Blood Urine Nitrite Urine Bilirubin Urine Urobilinogen Ur Leukocyte Esterase Urine Glucose Salicylates 4.6 Urine Opiates Screen Urine Methadone Screen Acetaminophen 10 Ur Barbiturates Screen Ur Tricyclics Screen Ur Amphetamines Screen U Benzodiazepines Scrn Urine Cocaine Screen Ur THC Screen Ethyl Alcohol < 3.0 COVID-19 Source Nasopharyx SARS-CoV-2 (PCR) Negative Influenza Type A (PCR) Negative Influenza Type B (PCR) Negative RSV (PCR) Negative 12/06/20 12/06/20 17:55 17:55 WBC RBC Hgb Hct MCV MCH MCHC RDW Plt Count MPV Immature Gran % Neutrophils % Lymphocytes % Monocytes % Eosinophils % Basophils % Nucleated RBC % Absolute Neutrophils Absolute Lymphocytes Absolute Monocytes Absolute Eosinophils Absolute Basophils D-Dimer Sodium Potassium Chloride Carbon Dioxide Anion Gap BUN Creatinine Estimated GFR/1.73 m2 Glucose Calcium Total Bilirubin AST ALT Alkaline Phosphatase Total Protein Albumin TSH Total Estradiol FSH Urine Color Yellow Urine Clarity Clear Urine pH 6.5 Ur Specific [place] 1.010 Urine Protein Negative Urine Ketones Negative Urine Blood Negative Urine Nitrite Negative Urine Bilirubin Negative Urine Urobilinogen 0.2 Ur Leukocyte Esterase Negative Urine Glucose Negative Salicylates Urine Opiates Screen Negative Urine Methadone Screen Negative Acetaminophen Ur Barbiturates Screen Negative Ur Tricyclics Screen Negative Ur Amphetamines Screen Negative U Benzodiazepines Scrn Negative Urine Cocaine Screen Negative Ur THC Screen Positive A Ethyl Alcohol COVID-19 Source SARS-CoV-2 (PCR) Influenza Type A (PCR) Influenza Type B (PCR) RSV (PCR) [facility] Medical History (Updated 12/07/20 @ 13:55 by Todd Hayward MD) Abdominal pain Abnormal auditory perception (05/26/15) Acute appendicitis (09/10/13) Carpal tunnel syndrome (09/10/13) Chronic tonsillitis (09/10/13) Endometriosis Headache Nausea Pityriasis versicolor Second degree burn Shoulder pain (09/10/13) surgery Surgical History (Updated 12/07/20 @ 13:55 by Todd Hayward MD) Cholecystectomy History of bilateral oophorectomy Oophrectomy, Both Status post cholecystectomy Family History Mother Alcohol abuse Father Alcohol abuse Brother No problems noted. Grandfather No problems noted. Grandfather Heart disease Grandmother Personal history of malignant neoplasm Grandmother No problems noted. Social History Smoking/Tobacco Use Status: Current every day Smoking risk assessment performed?: Yes Alcohol Intake: former Drug use: Occasionally Substance use type: marijuana Do you feel safe at home: Yes Do you feel safe in your relationship?: Yes
[2020-12-07 17:00] LABS: Estradiol 77 pg/mL (See Note)
[2020-12-08 09:58] LABS: FSH 6.7 mIU/mL (See Note)
== END 2020-12-07 14:22 | disposition home or self-care (01) | DRG 881 ==
LOC: ER 20:12 → MS 20:57
PROVIDERS: Internal Medicine; Admitting Provider Family Medicine; Emergency Provider Emergency Medicine; PCP Family Medicine; Visit Provider Family Medicine
DX: F32.9 Major depressive disorder, single episode, unspecified (principal); R45.851 Suicidal ideations; K59.00 Constipation, unspecified; F17.210 Nicotine dependence, cigarettes, uncomplicated; F41.9 Anxiety disorder, unspecified; J45.909 Unspecified asthma, uncomplicated; F90.9 Attention-deficit hyperactivity disorder, unspecified type; F11.10 Opioid abuse, uncomplicated; F12.90 Cannabis use, unspecified, uncomplicated
CPT/HCPCS: 36415; 80053; 80307; 81025; 99222; 99239; 99285; 71045; 80320; 80329; 81003; 82670; 83001; 84443; 85025; 85379; 99284

== ENCOUNTER 2021-03-04 11:22 | Emergency (ER) | payer MEDICAID, SELFPAY ==
[2021-03-04] VITALS (7 sets, daily range): BP systolic 123–176; BP diastolic 71–102; PULSE 64–108; RESP 11–22; TEMP 36.2–36.6; O2SAT 98–100
--- NOTE | 2021-03-04 12:01 | W.ED.GENAD ---
Discharge Plan Disposition Patient Disposition: HOME Condition: Stable Discharge Details Clinical Impression: Anxiety Primary Care Provider: Estefani Landon ED Provider: Todd Shell Home Meds and New Rx's Prescriptions: New lorazepam [Ativan] 1 mg tablet 1 mg PO TID PRN (Reason: anxiety) Qty: 10 RF: 0 Continued methylphenidate HCl [Ritalin] 20 mg tablet 20 mg PO TID RF: 0 dicyclomine 10 mg capsule 10 mg PO TID Qty: 90 RF: 5 Saccharomyces boulardii [Daily Probiotic (S. boulardii)] 250 mg capsule 250 mg PO BID Qty: 60 RF: 5 albuterol sulfate [Ventolin HFA] 90 mcg/actuation HFA aerosol inhaler 2 puff IH QID PRN (Reason: shortness of breath or wheezing) Qty: 6.7 RF: 1 buprenorphine-naloxone 8-2 mg tablet, sublingual 20 mg Sublingual DAILY RF: 0 clonidine HCl 0.1 mg tablet 0.1 mg PO TID RF: 0 gabapentin 600 mg tablet 1,200 mg PO TID RF: 0 Discharge Instructions Instructions: Lorazepam (By mouth), Anxiety (ED) Additional Instructions: follow up with your primary care provider within 1 week if you feel more ill or feel your symptoms are becoming even more severe return to the emergency department. Also return if you have thoughts of self harm or harming others Medical Decision Making 40 yo female with hx of prior substance abuse who states she has been sober for 8 years, who comes in feeling anxious. She states she started to feel this after her work accused her of using drugs which she denies so she came here requesting valium. She denies repeatedly of any drug use, and also denies alcohol use. Denies SI/HI. She has clear speech though is anxious, normal gait, no focal motor or sensation deficits. Exam and history consistent with anxiety and panic attack, will treat with valium and reassess. patient still feeling anxious despite oral ativan requesting more meds, does appear on exam to still be having a panic attack. Will try IM ativan pt states she feels better and appears less anxious, requesting something to eat. continues to deny si/hi and declines speaking with nekhs which I feel is reasonable given lack of si/hi. Will d/c with prn ativan and advised to follow up with pcp with return precautions Differential Diagnosis Differential Diagnosis: anxiety, panic attack HPI General Mode of arrival: ambulatory. Date/Time Provider Initiated Documentation: 03/04/21 11:24. Limitations to Documentation: no limitations. Information obtained by: patient. History of Present Illness 40 year old F presents to the emergency department with the chief complaint of anxious, described as moderate, and it has been constant. No relieving factors improve symptom(s), No exacerbating factors reported . Related Data Home Medications Medication Instructions Recorded Confirmed Saccharomyces boulardii 250 mg 250 mg PO BID #60 cap 02/04/20 03/04/21 capsule dicyclomine 10 mg capsule 10 mg PO TID #90 cap 02/04/20 03/04/21 albuterol sulfate 90 mcg/actuation 2 puff IH QID PRN #6.7 gm 06/06/20 03/04/21 aerosol inhaler clonidine HCl 0.1 mg PO TID 12/06/20 03/04/21 buprenorphine 8 mg-naloxone 2 mg 20 mg SUBLINGUAL DAILY tab 01/06/21 03/04/21 sublingual tablet gabapentin 600 mg tablet 1,200 mg PO TID tab 01/06/21 03/04/21 methylphenidate HCl 20 mg tablet 20 mg PO TID tab 02/26/21 03/04/21 lorazepam [Ativan] 1 mg PO TID PRN #10 tab 03/04/21 Previous Rx's Medication Instructions Recorded Saccharomyces boulardii 250 mg 250 mg PO BID #60 cap 02/04/20 capsule dicyclomine 10 mg capsule 10 mg PO TID #90 cap 02/04/20 albuterol sulfate 90 mcg/actuation 2 puff IH QID PRN #6.7 gm 06/06/20 aerosol inhaler lorazepam [Ativan] 1 mg PO TID PRN #10 tab 03/04/21 Allergies Allergy/AdvReac Type Severity Reaction Status Date / Time morphine Allergy Severe Hives Verified 03/04/21 11:43 Penicillins Allergy Severe Skin Rash Verified 03/04/21 11:43 dimethicone Allergy Intermediate Hives Verified 03/04/21 11:43 [From A \T\ D Emollient] glycerin Allergy Intermediate Hives Verified 03/04/21 11:43 [From A & D Emollient] stearyl alcohol Allergy Intermediate Hives Verified 03/04/21 11:43 [From A \T\ D Emollient] codeine Allergy Mild hives Verified 03/04/21 11:43 Carbapenems Allergy Unknown Verified 03/04/21 11:43 Cephalosporins Allergy Unknown hives Verified 03/04/21 11:43 quetiapine fumarate AdvReac Severe swelling Verified 03/04/21 11:43 [From Seroquel] lisdexamfetamine AdvReac Intermediate arm pain; Verified 03/04/21 11:43 [From Vyvanse] menorrhagia promethazine AdvReac Intermediate anxiety Verified 03/04/21 11:43 dinoprostone AdvReac Unknown Verified 03/04/21 11:43 General Stated Complaint: Anxiety MICHAEL: 3 Review of Systems All systems reviewed & are unremarkable except as noted in HPI and below Constitutional Constitutional: Denies chills, Denies fever(s) and Denies weakness Cardiovascular Cardiovascular: Denies chest pain and Denies dyspnea Respiratory Respiratory: Denies cough and Denies dyspnea Gastrointestinal Gastrointestinal: Denies abdominal pain, Denies nausea and Denies vomiting Musculoskeletal Musculoskeletal: Denies joint swelling Neurologic Neurologic: Denies weakness [facility] Medical History (Updated 03/04/21 @ 13:04 by Todd Shell MD) Abnormal auditory perception (05/26/15) Acute appendicitis (09/10/13) Carpal tunnel syndrome (09/10/13) Chronic tonsillitis (09/10/13) Endometriosis Headache Pityriasis versicolor Second degree burn Shoulder pain (09/10/13) surgery Surgical History (Updated 12/07/20 @ 13:55 by Todd Hayward MD) Cholecystectomy History of bilateral oophorectomy Oophrectomy, Both Status post cholecystectomy Family History Mother Alcohol abuse Father Alcohol abuse Brother No problems noted. Grandfather No problems noted. Grandfather Heart disease Grandmother Personal history of malignant neoplasm Grandmother No problems noted. Social History Smoking/Tobacco Use Status: Current every day Smoking risk assessment performed?: Yes Alcohol Intake: former Drug use: Daily Substance use type: marijuana Do you feel safe at home: Yes Do you feel safe in your relationship?: Yes Exam Const General: anxious Orientation: alert HENMT Head: normal to inspection Ears: external ears normal General nose exam: external nose normal Mouth: moist mucous membranes Eyes General: appearance normal, both eyes and all related structures Neck Neck: normal visual inspection Resp Effort & Inspection: normal respiratory effort and able to speak in complete sentences Cardio Rate: regular rate Skin General skin exam: no rashes or lesions noted Neuro General: patient alert and patient oriented x3 Extrem General: normal to inspection Psych Mental Status: mental status grossly normal Course Vital Signs Vital signs: Vital Signs Temperature 36.6 C 03/04/21 11:35 Pulse 64 03/04/21 11:35 Respiratory Rate 22 03/04/21 11:35 Blood Pressure 176/102 H 03/04/21 11:35 Pulse Oximetry 98 03/04/21 11:35 Temperature 36.6 C 03/04/21 11:35 Temperature Source Temporal Artery Scan 03/04/21 11:35 Pulse 64 03/04/21 11:35 Respiratory Rate 22 03/04/21 11:35 Respiratory Effort Non-Labored 03/04/21 11:42 Blood Pressure 176/102 H 03/04/21 11:35 Blood Pressure Position Sitting 03/04/21 11:35 Pulse Oximetry 98 03/04/21 11:35 Oxygen Delivery Method Room Air 03/04/21 11:35 Oxygen Flow Rate 0 03/04/21 11:35
[2021-03-04] MEDS: diazePAM 5 MG TAB PO (12:06)
[2021-03-04] MEDS: LORazepam 2 MG/ML VIAL 1 MG IM (12:38)
--- NOTE | 2021-03-04 13:25 | NUR.NOTE ---
lunch tray provided Nursing Note:
== END 2021-03-04 13:39 | disposition home or self-care (01) ==
PROVIDERS: Emergency Provider Emergency Medicine; PCP Nurse Practitioner
DX: F41.9 Anxiety disorder, unspecified (principal)
CPT/HCPCS: 96372; 99284; 99283; J2060

== ENCOUNTER 2021-04-27 09:02 | Outpatient (REF) | payer MEDICAID, SELFPAY ==
--- NOTE | 2021-04-27 08:40 | PAPFT_PTH ---
PATIENT: Linda Tanner LOC: N U#:[id number] AGE/SX: 40/F ROOM: RE04/27/[address]: CAROLINA Miranda : 1980 BED: DIS: 04/27/2021 SPEC #: [id number] RECD: 04/27/21 12:53 STATUS: JAYA REArin #: [id number] RAAD: 04/27/21 08:[address]: Mimi Chambres DEPT: [facility] Cytology RECD BY: Rebecca Perdomo ENTERED: 04/27/21 12:54 SP TYPE: PAPFT OTHR DR: Estefani Landon, PhD HOME HEALTH ATTENDANT Tissues: 1 - CX/ENDOCX FOR PAP SMEARS Procedures: PAP THIN PREP/UVM Screening HPV DNA PROBE Comments: [id number]
== END 2021-04-27 09:03 | disposition home or self-care (01) ==
LOC: LBN 09:02
PROVIDERS: PCP Nurse Practitioner; Visit Provider Nurse Practitioner Family
DX: Z12.4 Encounter for screening for malignant neoplasm of cervix (principal); Z11.51 Encounter for screening for human papillomavirus (HPV)
CPT/HCPCS: 88142; 87624

== ENCOUNTER 2021-10-16 13:36 | Outpatient (REF) | payer MEDICAID, SELFPAY ==
[2021-10-18 15:44] LABS: COVID-19 RT-PCR UVMMC Result Negative (Negative)
== END 2021-10-16 13:37 | disposition home or self-care (01) ==
LOC: LBN 13:36
PROVIDERS: PCP Nurse Practitioner; Visit Provider Nurse Practitioner
DX: R05.9 Cough, unspecified (principal); Z20.822 Contact with and (suspected) exposure to COVID-19
CPT/HCPCS: U0003

== ENCOUNTER 2021-10-23 15:45 | Emergency (ER) | payer MEDICAID, SELFPAY ==
[2021-10-23] VITALS (10 sets, daily range): BP systolic 111–142; BP diastolic 63–85; PULSE 74–93; RESP 13–23; TEMP 36.8–37.2; O2SAT 94–98
--- NOTE | 2021-10-23 15:45 | RT.EKG_ITS ---
APPROVED REPORT Exam: Resting ECG Reason for Exam: SOB Patient Location: E HR:86 bpm ECG Measurements Heart Rate 86 AXIS VA 122 P 53 QRSd 77 QRS 65 QT 356 T 36 QTc 427 Conclusion Sinus rhythm...normal P axis, V-rate 60- 99
--- NOTE | 2021-10-23 16:00 | DI.RAD_ITS ---
Exam(s) XR PORTABLE CHEST AP EXAM: XR PORTABLE CHEST AP CLINICAL HISTORY: Shortness of breath TECHNIQUE: 2D digital imaging was performed. COMPARISON: CR,XR XR PORTABLE CHEST AP from 12/07/2020 FINDINGS: LUNGS: Poor pulmonary inflation. Clear. No pleural abnormality seen. HEART: Normal. MEDIASTINUM: Normal. BONES: Unremarkable. IMPRESSION: No acute pulmonary findings. DATA REPOSITORY: RADIATION DOSE DELIVERED:
--- NOTE | 2021-10-23 16:18 | ED.GENADUL_ITS ---
Discharge Plan Disposition Patient Disposition: HOME Condition: Stable Discharge Details Clinical Impression: Anxiety, Depressive disorder, URI (upper respiratory infection) Primary Care Provider: Estefani Landon ED Provider: Kar Dela Cruz Home Meds and New Rx's Prescriptions: Continued chlorhexidine gluconate 0.12 % mouthwash 15 ml mucous membrane BID Qty: 473 RF: 0 methylphenidate HCl 20 mg tablet 20 mg PO TID RF: 0 buprenorphine-naloxone 8-2 mg tablet, sublingual 20 mg Sublingual DAILY RF: 0 albuterol sulfate [Ventolin HFA] 90 mcg/actuation HFA aerosol inhaler 2 puff IH QID PRN (Reason: shortness of breath or wheezing) Qty: 6.7 RF: 1 clindamycin HCl 300 mg capsule 300 mg PO TID Qty: 30 RF: 0 trazodone 100 mg tablet 100 mg PO QHS RF: 0 gabapentin 600 mg tablet 1,200 mg PO TID RF: 0 Discharge Instructions Instructions: Upper Respiratory Infection (ED), Anxiety (ED) Additional Instructions: It is very important that you continue to take your daily prescribed medication and follow-up with your primary care provider or psychiatrist for reassessment preferably next week if possible. If you have any new or significant worsening of symptoms, active suicidality, or change in your condition feel free to return to the emergency department for reassessment. At this time you do not have COVID-19 and it appears you have a viral infection. For your symptoms you may take [id number] cold medication as directed on packaging. Referrals: Estefani Landon, [employer] [Primary Care Provider] - 1 week Discharge Data Discharge Date/Time-TO BE ENTERED AT DEPARTURE: 10/23/21 22:29 Medical Decision Making Patient presenting to the emergency department for chief complaint of anxiety, depression, and cold symptoms. She states all of this is been going on for 10 days now she does state that she has had generalized thoughts of she does not deserve to be here. But denies any active suicidal plan, denies any thoughts of direct harm to herself, and states concern over possible relapse of drug abuse. Labs were reviewed and are reassuring and patient is COVID-negative. Mental health was consulted Spoke with adilson Barnes who states that patient does not have active suicidal plan and is refusing voluntary admission for depression and anxiety. Given this and that patient does not meet admission criteria or criteria for involuntary admission she feels that patient is safe for discharge. Patient did also mention to her that she was concerned if she was discharged she would go out and further abuse drugs. Given that patient had mentioned multiple times about possible relapse of drug abuse control and recovery combat rescue was called. They were able to come in and see the patient but patient refusing any other services. After very jovany conversation with patient in regards to our capability for helping her she stated that she did not want to go back to her grandmother's house as it is a very difficult situation for her to live in. She reports that she does not have anywhere else to go and does not have money for hotel room. After further discussion patient stated that she just wanted to be discharged home if we could find her ride. [facility] was paged to assist her in getting home. Did discuss with patient return and follow-up precautions especially with her overall depression and anxiety but I agree with mental health plan for safe discharge given that patient does not actively have a plan of self-harm and is n ot wanting voluntary psychiatric admission. Patient was informed that if suicidality or thoughts of self-harm do worsen that she should return to the emergency department for reevaluation. HPI General Mode of arrival: ambulatory . Date/Time Provider Initiated Documentation: 10/23/21 16:01 . Limitations to Documentation: no limitations . Information obtained by: patient . History of Present Illness 40 year old F presents to the emergency department with the chief complaint of Shortness of breath, headache, anxiety, described as moderate, with intensity rated at 8. Quality is described as aching, and is localized to the head. Patient reports no radiation. Patient started experiencing this day(s) (10) and it has been constant. No relieving factors improve symptom(s), No exacerbating factors reported . Related Data Home Medications Medication Instructions Recorded Confirmed buprenorphine 8 mg-naloxone 2 mg 20 mg SUBLINGUAL DAILY tab 01/06/21 10/23/21 sublingual tablet gabapentin 600 mg tablet 1,200 mg PO TID tab 01/06/21 10/23/21 methylphenidate HCl 20 mg tablet 20 mg PO TID tab 04/27/21 10/23/21 chlorhexidine gluconate 0.12 % 15 ml MUCOUS MEMBRANE BID #473 ml 08/04/21 10/16/21 mouthwash albuterol sulfate 90 mcg/actuation 2 puff IH QID PRN #6.7 gm 10/12/21 10/23/21 aerosol inhaler clindamycin HCl 300 mg capsule 300 mg PO TID #30 cap 10/19/21 10/23/21 trazodone 100 mg PO QHS 10/23/21 10/23/21 Previous Rx's Medication Instructions Recorded chlorhexidine gluconate 0.12 % 15 ml MUCOUS MEMBRANE BID #473 ml 08/04/21 mouthwash albuterol sulfate 90 mcg/actuation 2 puff IH QID PRN #6.7 gm 10/12/21 aerosol inhaler clindamycin HCl 300 mg capsule 300 mg PO TID #30 cap 10/19/21 Allergies Allergy/AdvReac Type Severity Reaction Status Date / Time morphine Allergy Severe Hives Verified 10/23/21 15:56 Penicillins Allergy Severe Skin Rash Verified 10/23/21 15:56 dimethicone Allergy Intermediate Hives Verified 10/23/21 15:56 [From A \T\ D Emollient] glycerin Allergy Intermediate Hives Verified 10/23/21 15:56 [From A & D Emollient] stearyl alcohol Allergy Intermediate Hives Verified 10/23/21 15:56 [From A \T\ D Emollient] codeine Allergy Mild hives Verified 10/23/21 15:56 Carbapenems Allergy Unknown Verified 10/23/21 15:56 Cephalosporins Allergy Unknown hives Verified 10/23/21 15:56 quetiapine fumarate AdvReac Severe swelling Verified 10/23/21 15:56 [From Seroquel] lisdexamfetamine AdvReac Intermediate arm pain; Verified 10/23/21 15:56 [From Vyvanse] menorrhagia promethazine AdvReac Intermediate anxiety Verified 10/23/21 15:56 dinoprostone AdvReac Unknown Verified 10/23/21 15:56 General Stated Complaint: RespSymp MICHAEL: 2 Review of Systems Constitutional Constitutional: Denies chills, Denies fever(s), Reports headache(s) and Denies malaise ENT Ears, Nose, Mouth, and Throat: Reports as per HPI, Reports otalgia, Reports headache(s), Reports nasal congestion, Denies neck pain and Denies sore throat Cardiovascular Cardiovascular: Reports as per HPI, Reports chest pain, Denies chest pain with activity, Denies syncope, Denies irregular heart rhythm, Denies palpitations and Reports dyspnea Respiratory Respiratory: Reports cough, Denies hemoptysis and Reports dyspnea Gastrointestinal Gastrointestinal: Denies abdominal pain, Denies nausea and Denies vomiting Musculoskeletal Musculoskeletal: Denies neck pain Neurologic Neurologic: Denies syncope and Reports headache(s) Psychiatric Psychiatric: Reports as per HPI, Reports anxiety, Reports depression, Denies homicidal ideation and Reports suicidal ideation Endocrine Endocrine: Denies cold intolerance, Denies heat intolerance and Denies palpitations PFSH All Active Problems (Updated 10/23/21 @ 22:03 by Kar Dela Cruz NP) URI (upper respiratory infection) (Acute) Dental abscess (Acute) Anxiety (Chronic) Weight gain (Acute) IBS (irritable bowel syndrome) (Chronic) Asthma (Acute) Attention deficit hyperactivity disorder (Acute 09/10/13) Depressive disorder (Acute) Smoker (Acute) Substance abuse (Acute 12/29/12) drug seeking behaivior. Intensive Outpatient Program ([facility] Medical History Abnormal auditory perception (05/26/15) Acute appendicitis (09/10/13) Carpal tunnel syndrome (09/10/13) Chronic tonsillitis (09/10/13) Endometriosis Headache Pityriasis versicolor Second degree burn Shoulder pain (09/10/13) surgery Surgical History Cholecystectomy History of bilateral oophorectomy Oophrectomy, Both Status post cholecystectomy Family History Mother Alcohol abuse Father Alcohol abuse Brother No problems noted. Grandfather No problems noted. Grandfather Heart disease Grandmother Personal history of malignant neoplasm Grandmother No problems noted. Social History Smoking/Tobacco Use Status: Current every day Smoking risk assessment performed?: Yes Alcohol Intake: former Drug use: Daily Substance use type: marijuana Do you feel safe at home: Yes Do you feel safe in your relationship?: Yes Exam Const General: cooperative, healthy appearing, comfortable, no acute distress, not diaphoretic and not ill appearing Nutritional Appearance: average body habitus Orientation: alert, awake and oriented x3 Limitations: mental status not altered HENMT Head: normal to inspection, normocephalic and atraumatic Ears: hearing grossly normal bilaterally, external ears normal and TM abnormal wth effusion serous bilaterally and scarred bilaterally General nose exam: external nose normal Face and sinus: no erythema Mouth: oral mucosae normal, no drooling, no muffled voice and no trismus Teeth and gingiva: poor dentition Throat: posterior oropharynx normal Neck Neck: normal visual inspection, full ROM, trachea midline, supple and no anterior neck swelling Chest Chest: normal inspection of the chest Resp Effort & Inspection: normal respiratory effort and able to speak in complete sentences Auscultation: clear to auscultation bilaterally Cardio Rate: regular rate Rhythm: regular rhythm Heart Sounds: S1 normal, S2 normal, no click, no gallops, no murmurs and no rubs GI Inspection: normal to inspection Palpation: soft, no aortic enlargement, no pulsatile masses and nontender Auscultation: normal bowel sounds Skin General skin exam: no rashes or lesions noted Neuro General: patient alert, patient awake, patient oriented x3, tone normal and moves all extremities Cognition: normal cognition Speech: speech normal Psych Appearance: disheveled Speech and Movement: speech and movement normal Mood: anxious mood Affect: anxious affect Attitude: cooperative Thought Content: no homicidality and suicidality Course Vital Signs Vital signs: Vital Signs Temperature 37.2 C 10/23/21 15:52 Pulse 93 H 10/23/21 15:52 Respiratory Rate 18 10/23/21 15:52 Blood Pressure 126/74 10/23/21 15:52 Pulse Oximetry 98 10/23/21 15:52 Temperature 36.8 C 10/23/21 16:10 Temperature Source Oral 10/23/21 16:10 Pulse 84 10/23/21 16:10 Respiratory Rate 14 10/23/21 16:10 Respiratory Effort Non-Labored 10/23/21 16:10 Respiratory Depth Normal 10/23/21 16:10 Blood Pressure 142/84 H 10/23/21 16:10 Blood Pressure Position Sitting 10/23/21 15:52 Pulse Oximetry 98 10/23/21 16:10 Oxygen Delivery Method Room Air 10/23/21 16:10 Oxygen Flow Rate 0 10/23/21 16:10 Pain Level 8 10/23/21 16:10
[2021-10-23] MEDS: LORazepam 2 MG/ML VIAL 0.5 MG IVP (16:43)
[2021-10-23] MEDS: Normal Saline Flush 10 ML SYR IVP ×2 (16:44→18:06)
[2021-10-23 16:50] LABS: Abs Immature Grans 0.03 10^3/uL (0.0-0.06); Absolute Basophil Count 0.08 10^3/uL (0.0-0.2); Absolute Eosinophil Count 0.08 10^3/uL (0.0-0.7); Absolute Lymphocyte Count 1.19 10^3/uL (1.2-3.4); Absolute Monocyte Count 0.44 10^3/uL (0.1-0.8); Basophils % 0.8; Eosinophils % 0.8; HCT 41.8 % (36.0-46.0); HGB 13.7 g/dL (11.2-15.7); Immature Grans % 0.3; Lymphocytes % 11.9; MCH 29.8 pg (27.0-33.0); MCHC 32.8 % (32.0-36.0); MCV 90.9 fL (80-95); MPV 10.9 fL (8.0-11.0); Monocytes % 4.4; Neutrophils % 81.8; Nucleated RBC 0 %; Platelet Count 238 10^3/uL (130-400); RDW 13.7 % (11.7-14.6); WBC 10.02 10^3/uL (4.4-10.8)
[2021-10-23 17:00] LABS: Source Nasopharynx
[2021-10-23 17:01] LABS: ETHANOL BLOOD < 3.0 mg/dL (<10)
[2021-10-23 17:06] LABS: ALT 19 U/L (14-59); AST 12 U/L (15-37); Albumin 3.6 g/dL (3.4-5.0); Alkaline Phosphatase 97 U/L (46-116); Anion Gap 9.6 mmol/L (3-11); BUN 10 mg/dL (7-18); Bilirubin, Total 0.4 mg/dL (0.2-1.0); CO2 26.4 mmol/L (21.0-32.0); CREATININE 0.8 mg/dL (0.55-1.02); Calcium 9.1 mg/dL (8.5-10.1); Chloride 102 mmol/L (98-107); Glucose 106 mg/dL (74-106); Potassium 4.1 mmol/L (3.5-5.1); Sodium 138 mmol/L (136-145); Total Protein 7.2 g/dL (6.4-8.2); Troponin I < 50 ng/L (<or=60)
[2021-10-23 17:12] LABS: Bilirubin Negative (Negative); Blood Negative (Negative); Clarity Clear (Clear); Glucose Negative (Negative); Ketones Negative (Negative); Leukocyte Esterase Negative (Negative); Nitrite Negative (Negative); Specific Gravity 1.025 (1.005-1.025); Urobilinogen 0.2 EU/dL (Up TO 0.2)
[2021-10-23 17:22] LABS: D-Dimer 352 ng/mlFEU (<500)
[2021-10-23 17:33] LABS: Salicylate 5.2 mg/dL (<2.8)
[2021-10-23 17:35] LABS: Acetaminophen < 2 ug/mL (10-30)
[2021-10-23 17:42] LABS: COVID-19 PCR Negative (Negative); Influenza A PCR Negative (Negative); Influenza B PCR Negative (Negative); RSV PCR Negative (Negative)
[2021-10-23] MEDS: Ketorolac 15 MG/ML VIAL IVP (18:05)
[2021-10-23] MEDS: Ondansetron 4 MG/2 ML VIAL IVP (18:05)
[2021-10-23] MEDS: diphenhydrAMINE 50 MG/ML VIAL 25 MG IVP (18:06)
--- NOTE | 2021-10-23 22:11 | PDOC.MHCN ---
Date of service: 10/23/21 Time of Service: 19:30 Mental Health Crisis Note Presenting Issue How did you arrive at the ED and why did you come: Client arrived at [facility] ED stating that she had been having heightened anxiety for the past 10 days. She also is complaining of shortness of breath, headache, and coughing. Precipitating Factors Client states that she is currently having SI, denies intent or plan. Client denies HI. Disposition BEHAVIOR: Client is sleeping when this selling underwriter arrives via zoom, she is very hard to wake up and engage in assessment. This selling underwriter asks client what brought her to the Ed and all she could say is hard times. She states that she is having SI, but does not have intent or plan and has never self-harmed before. EYE CONTACT: Client makes no eye contact, as she is dozing off throughout assessment having to get woken up by nurse at bedside and this selling underwriter. MOOD: Clients mood appears to be tired and sleep, could not properly identify her mood as she would not stay awake for assessment. AFFECT: Flat Affect APPETITE: Client states that her appetite has not been good, however would not elaborate what this meant. SLEEP(trouble falling/staying asleep: Client states that she has been sleeping like hell averaging about 4 hours of sleep a night. Plan When this selling underwriter attempted to make plan with client, she states: I just want to stay here for the night I know that I am safe. She is not interested in inpatient treatment. When this selling underwriter asks her about getting set up with a therapist since she no longer has one, she says: maybe in the morning after I sleep we can talk about that. This selling underwriter explained to client that the hospital did not have space for her to sleep there tonight and she states well if I leave here I am just going to go do drugs. After talking with the attending provider he will have a tin recovery worker come in and try to make plan with client and then discharge client. Signature Clinician's Name/Title: Molly Georges [facility] Emergency Clinician
== END 2021-10-23 22:29 | disposition home or self-care (01) ==
PROVIDERS: Emergency Provider Nurse Practitioner Family; PCP Nurse Practitioner
DX: F41.9 Anxiety disorder, unspecified (principal); F32.A Depression, unspecified; J06.9 Acute upper respiratory infection, unspecified; R06.02 Shortness of breath
CPT/HCPCS: 80053; 87637; 93005; 99284; 71045; 80320; 80329; 81003; 84484; 85025; 85379; 93010; J1200; J1885; J2060; J2405

== ENCOUNTER 2021-10-31 19:12 | Emergency (ER) | payer MEDICAID, SELFPAY ==
--- NOTE | 2021-10-31 19:15 | RT.EKG_ITS ---
APPROVED REPORT Exam: Resting ECG Reason for Exam: palpitations Patient Location: E HR:84 bpm ECG Measurements Heart Rate 84 AXIS IA 116 P 53 QRSd 80 QRS 59 QT 356 T 33 QTc 421 Conclusion Sinus rhythm...normal P axis, V-rate 60- 99
[2021-10-31 19:21] VITALS: BP 127/73; PULSE 90; RESP 18; TEMP 37.1; O2SAT 97
[2021-10-31 19:25] VITALS: BP 127/73; PULSE 75; PULSE 98; RESP 19; O2SAT 96
[2021-10-31 19:26] VITALS: PULSE 99; RESP 15; O2SAT 96
[2021-10-31 19:34] VITALS: BP 111/80; PULSE 106; PULSE 108; RESP 23
[2021-10-31 19:35] VITALS: PULSE 102; RESP 21; O2SAT 98
[2021-10-31 19:40] VITALS: PULSE 94; RESP 20; O2SAT 97
[2021-10-31 20:02] LABS: Source Nasal/Nares
[2021-10-31] MEDS: LORazepam 1 MG TAB PO (20:02)
[2021-10-31 20:06] LABS: Abs Immature Grans 0.02 10^3/uL (0.0-0.06); Absolute Basophil Count 0.06 10^3/uL (0.0-0.2); Absolute Eosinophil Count 0.16 10^3/uL (0.0-0.7); Absolute Lymphocyte Count 2.35 10^3/uL (1.2-3.4); Absolute Monocyte Count 0.72 10^3/uL (0.1-0.8); Absolute Neutrophil Count 6.37 10^3/uL (1.2-6.7); Basophils % 0.6; Eosinophils % 1.7; HCT 41.2 % (36.0-46.0); HGB 13.5 g/dL (11.2-15.7); Immature Grans % 0.2; Lymphocytes % 24.3; MCH 29.9 pg (27.0-33.0); MCHC 32.8 % (32.0-36.0); MCV 91.2 fL (80-95); MPV 10.3 fL (8.0-11.0); Monocytes % 7.4; Neutrophils % 65.8; Nucleated RBC 0 %; Platelet Count 222 10^3/uL (130-400); RBC 4.52 10^6/uL (3.93-5.22); RDW 13.6 % (11.7-14.6); WBC 9.68 10^3/uL (4.4-10.8)
[2021-10-31 20:10] LABS: Bilirubin Small (Negative); Blood Large (Negative); Clarity Cloudy (Clear); Glucose Negative (Negative); Ketones Trace mg/dL (Negative); Leukocyte Esterase Trace (Negative); Nitrite Negative (Negative); Specific Gravity >= 1.030 (1.005-1.025); Urobilinogen 0.2 EU/dL (Up TO 0.2)
[2021-10-31 20:17] LABS: Bacteria Few HPF (Negative); C & S Indicated? Yes; Casts Negative LPF (Negative); Crystals Negative HPF (Negative); Epithelial Cells Few HPF (Negative); Mucus Trace (Negative); RBC >50 HPF (0-2)
--- NOTE | 2021-10-31 20:24 | ED.GENADUL_ITS ---
Discharge Plan Disposition Patient Disposition: HOME Condition: Good Discharge Details Clinical Impression: Encounter for medical assessment, Accidental drug ingestion Primary Care Provider: Estefani Landon ED Provider: Tray Bello Home Meds and New Rx's Prescriptions: Continued chlorhexidine gluconate 0.12 % mouthwash 15 ml mucous membrane BID Qty: 473 RF: 0 methylphenidate HCl 20 mg tablet 20 mg PO TID RF: 0 buprenorphine-naloxone 8-2 mg tablet, sublingual 20 mg Sublingual DAILY RF: 0 albuterol sulfate [Ventolin HFA] 90 mcg/actuation HFA aerosol inhaler 2 puff IH QID PRN (Reason: shortness of breath or wheezing) Qty: 6.7 RF: 1 clindamycin HCl 300 mg capsule 300 mg PO TID Qty: 30 RF: 0 trazodone 100 mg tablet 100 mg PO QHS RF: 0 gabapentin 600 mg tablet 1,200 mg PO TID RF: 0 Discharge Instructions Instructions: Cannabis Abuse (ED) Additional Instructions: If you notice any worsening of your symptoms, or any new symptoms such as vomiting, diarrhea, fever, chills, shortness of breath, chest pain, numbness, weakness, or fainting , please return immediately to the emergency department for reevaluation. Please follow up with your primary care provider as soon as possible for reassessment and reevaluation. As always, it was a pleasure participating in your medical care today. Discharge Data Discharge Date/Time-TO BE ENTERED AT DEPARTURE: 11/01/21 06:12 Medical Decision Making <THIAGO Turner - Last Filed: 11/01/21 19:24> Patient is alert and oriented but very anxious, she has almost inconsolable because she is so anxious therefore I did order 2 mg of IM Ativan Given her suicidal ideation and anxiety, she had a CPS0 ordered Unfortunately at time of reassessment patient tired and falls asleep during my discussion, I am able to fully assess her Unfortunately she is unlikely to have mental health assessment at time of my repeat assessment, she is sleeping at 2330 I will sign this patient out to Dr. Bello pending mental health reassessment in the morning Patient's diagnostics do not show acute abnormality She is positive for cocaine and marijuana Urinalysis was positive for blood, patient does have her menstrual period EKG does not show acute abnormality Lab Data Lab results reviewed: Yes I reviewed the patient's lab results. ECG Data Prior ECG tracings: available for review <Tray Bello DO - Last Filed: 11/01/21 05:58> Patient was signed out to me by my colleague Rebecca, please refer to her HPI, physical exam assessment and plan. At time of signout is recommended that the patient sleep and be reassessed in the morning. Patient is woken up and is requesting food. On reassessment the patient feels well. She states she denies any homicidal or suicidal ideations. She states she does not want to hurt herself. She does have counselors on an outpatient basis. Patient is otherwise stable, and appropriate for discharge. She states that she has the resources that she needs. With no intent to harm herself, has no threats of suicidality at this time, I feel the patient is safe and appropriate for discharge. She will be discharged home. Discussed red flags for which to return. I have extensively reviewed the treatment plan and discharge instructions with the patient. I have addressed all patient concerns at this time. The patient was made aware of what symptoms to monitor for that would warrant a return to the emergency department. Discussed the plan with the patient, they demonstrate verbal understanding and agreement with our assessment and plan at this time. The documentation in this chart was dictated using [employer] dictation software. Please excuse any dictation errors. HPI <THIAGO Turner - Last Filed: 11/01/21 19:24> General Mode of arrival: ambulatory . Date/Time Provider Initiated Documentation: 10/31/21 19:32 . Limitations to Documentation: no limitations . Information obtained by: patient . HPI Narrative: Patient is a 40-year-old female with history of anxiety who presents status post smoking marijuana prior to arrival. She states that she thinks it was laced with something . She denies any alcohol consumption or any additional illicit drug use. She states she feels very anxious. Her birthday is tomorrow and she and her friends were celebrating. She denies any chance of . States she is feeling suicidal but would not disclose her plan. She denies any attempts to harm self this evening. She denies any fever or chills. She denies any chest pain or shortness of breath. She denies any dizziness or weakness. She states she feels overwhelmingly anxious. Denies any auditory visual hallucinations. Related Data Home Medications Medication Instructions Recorded Confirmed buprenorphine 8 mg-naloxone 2 mg 20 mg SUBLINGUAL DAILY tab 01/06/21 10/31/21 sublingual tablet gabapentin 600 mg tablet 1,200 mg PO TID tab 01/06/21 10/31/21 methylphenidate HCl 20 mg tablet 20 mg PO TID tab 04/27/21 10/31/21 chlorhexidine gluconate 0.12 % 15 ml MUCOUS MEMBRANE BID #473 ml 08/04/21 10/16/21 mouthwash albuterol sulfate 90 mcg/actuation 2 puff IH QID PRN #6.7 gm 10/12/21 10/31/21 aerosol inhaler clindamycin HCl 300 mg capsule 300 mg PO TID #30 cap 10/19/21 10/31/21 trazodone 100 mg PO QHS 10/23/21 10/31/21 Previous Rx's Medication Instructions Recorded chlorhexidine gluconate 0.12 % 15 ml MUCOUS MEMBRANE BID #473 ml 08/04/21 mouthwash albuterol sulfate 90 mcg/actuation 2 puff IH QID PRN #6.7 gm 10/12/21 aerosol inhaler clindamycin HCl 300 mg capsule 300 mg PO TID #30 cap 10/19/21 Allergies Allergy/AdvReac Type Severity Reaction Status Date / Time morphine Allergy Severe Hives Verified 10/31/21 19:24 Penicillins Allergy Severe Skin Rash Verified 10/31/21 19:24 dimethicone Allergy Intermediate Hives Verified 10/31/21 19:24 [From A \T\ D Emollient] glycerin Allergy Intermediate Hives Verified 10/31/21 19:24 [From A & D Emollient] stearyl alcohol Allergy Intermediate Hives Verified 10/31/21 19:24 [From A \T\ D Emollient] codeine Allergy Mild hives Verified 10/31/21 19:24 Carbapenems Allergy Unknown Verified 10/31/21 19:24 Cephalosporins Allergy Unknown hives Verified 10/31/21 19:24 quetiapine fumarate AdvReac Severe swelling Verified 10/31/21 19:24 [From Seroquel] lisdexamfetamine AdvReac Intermediate arm pain; Verified 10/31/21 19:24 [From Vyvanse] menorrhagia promethazine AdvReac Intermediate anxiety Verified 10/31/21 19:24 dinoprostone AdvReac Unknown Verified 10/31/21 19:24 General Stated Complaint: Anxiety MICHAEL: 2 Review of Systems <THIAGO Turner - Last Filed: 11/01/21 19:24> All systems reviewed & are unremarkable except as noted in HPI and below PFSH <THIAGO Turner - Last Filed: 11/01/21 19:24> All Active Problems (Updated 11/01/21 @ 05:56 by Tray Bello DO) Substance abuse (Acute 12/29/12) drug seeking behaivior. Intensive Outpatient Program ([facility] [place] Smoker (Acute) Depressive disorder (Acute) Attention deficit hyperactivity disorder (Acute 09/10/13) Asthma (Acute) IBS (irritable bowel syndrome) (Chronic) Weight gain (Acute) Anxiety (Chronic) Dental abscess (Acute) URI (upper respiratory infection) (Acute) Encounter for medical assessment (Acute) Accidental drug ingestion (Acute) Medical History (Updated 11/01/21 @ 05:56 by Tray Bello DO) Abnormal auditory perception (05/26/15) Acute appendicitis (09/10/13) Carpal tunnel syndrome (09/10/13) Chronic tonsillitis (09/10/13) Drug abuse and dependence Endometriosis Headache Pityriasis versicolor Second degree burn Shoulder pain (09/10/13) surgery Surgical History Cholecystectomy History of bilateral oophorectomy Oophrectomy, Both Status post cholecystectomy Family History Mother Alcohol abuse Father Alcohol abuse Brother No problems noted. Grandfather No problems noted. Grandfather Heart disease Grandmother Personal history of malignant neoplasm Grandmother No problems noted. Social History Smoking/Tobacco Use Status: Current every day Smoking risk assessment performed?: Yes Alcohol Intake: former Drug use: Daily Substance use type: marijuana Do you feel safe at home: Yes Do you feel safe in your relationship?: Yes Exam <THIAGO Turner - Last Filed: 11/01/21 19:24> Const Orientation: alert and oriented x3 HENMT Head: normal to inspection Eyes Pupils: PERRL Resp Effort & Inspection: normal respiratory effort Auscultation: clear to auscultation bilaterally Cardio Rate: regular rate Rhythm: regular rhythm GI Other: Nontender abdominal exam Skin General skin exam: no rashes or lesions noted Neuro General: patient alert and patient oriented x3 Cranial Nerves: tongue midline Speech: speech normal Motor: strength 5/5 throughout Psych Appearance: disheveled Mental Status: mental status grossly normal Speech and Movement: agitated and restless Mood: anxious mood Attitude: cooperative Course <THIAGO Turner - Last Filed: 11/01/21 19:24> Vital Signs Vital signs: Vital Signs Temperature 37.1 C 10/31/21 19:21 Pulse 90 10/31/21 19:21 Respiratory Rate 18 10/31/21 19:21 Blood Pressure 127/73 10/31/21 19:21 Pulse Oximetry 97 10/31/21 19:21 Temperature 37.1 C 10/31/21 19:21 Temperature Source Skin 10/31/21 19:21 Pulse 90 10/31/21 19:21 Respiratory Rate 18 10/31/21 19:21 Respiratory Effort 10/31/21 19:25 Blood Pressure 127/73 10/31/21 19:21 Pulse Oximetry 97 10/31/21 19:21 Pain Level 8 10/31/21 19:21 Lab/Test Results Lab/Test Results: 10/31/21 19:59 Urine - Reflex from Ua Urine Culture - Pending Laboratory Tests Range/Units 10/31/21 10/31/21 10/31/21 19:59 19:59 20:01 WBC (4.4-10.8) 10^3/uL 9.68 RBC (3.93-5.22) 10^6/uL 4.52 Hgb (11.2-15.7) g/dL 13.5 Hct (36.0-46.0) % 41.2 MCV (80-95) fL 91.2 MCH (27.0-33.0) pg 29.9 MCHC (32.0-36.0) % 32.8 RDW (11.7-14.6) % 13.6 Plt Count (130-400) 10^3/uL 222 MPV (8.0-11.0) fL 10.3 Immature Gran % 0.2 Neutrophils % 65.8 Lymphocytes % 24.3 Monocytes % 7.4 Eosinophils % 1.7 Basophils % 0.6 Nucleated RBC % % 0 Absolute Neutrophils (1.2-6.7) 10^3/uL 6.37 Absolute Lymphocytes (1.2-3.4) 10^3/uL 2.35 Absolute Monocytes (0.1-0.8) 10^3/uL 0.72 Absolute Eosinophils (0.0-0.7) 10^3/uL 0.16 Absolute Basophils (0.0-0.2) 10^3/uL 0.06 Urine Color (Yellow) Yellow Urine Clarity (Clear) Cloudy Urine pH (5-8) 6.0 Ur Specific [place] (1.005-1.025) >= 1.030 H Urine Protein (Negative) mg/dL 100 H Urine Ketones (Negative) mg/dL Trace H Urine Blood (Negative) Large H Urine Nitrite (Negative) Negative Urine Bilirubin (Negative) Small H Urine Urobilinogen (Up TO 0.2) EU/dL 0.2 Ur Leukocyte Esterase (Negative) Trace H Urine RBC (0-2) HPF >50 H Urine WBC (0-5) HPF 5-10 Ur Epithelial Cells (Negative) HPF Few Urine Crystals (Negative) HPF Negative Urine Bacteria (Negative) HPF Few Urine Casts (Negative) LPF Negative Urine Mucus (Negative) Trace Ur Culture Indicated? Yes Urine Glucose (Negative) mg/dL Negative COVID-19 Source Nasal/Nares Sign Out <THIAGO Turner - Last Filed: 11/01/21 19:24> Sign Out Data: Sign Out Comment: pending pt reassessment/ sobriety/MH reassessment Last updated by Rebecca Aldrich PA at 11/01/21 00:05
[2021-10-31 20:27] LABS: *AMPHETAMINES SCREEN URINE Negative (Negative); *BARBITURATES SCREEN URINE Negative (Negative); *BENZODIAZEPINES SCREEN URINE Negative (Negative); Cannabinoids THC Positive (Negative); Cocaine Screen,Urine Positive (Negative); METHADONE URINE SCREEN Negative (Negative); OPIATES URINE SCREEN Negative (Negative)
[2021-10-31] MEDS: LORazepam 2 MG/ML VIAL IM (20:27)
[2021-10-31 20:28] LABS: ALT 34 U/L (14-59); AST 16 U/L (15-37); Albumin 3.7 g/dL (3.4-5.0); Alkaline Phosphatase 93 U/L (46-116); Anion Gap 7.9 mmol/L (3-11); BUN 12 mg/dL (7-18); Bilirubin, Total 0.5 mg/dL (0.2-1.0); CO2 26.1 mmol/L (21.0-32.0); CREATININE 0.8 mg/dL (0.55-1.02); Calcium 8.7 mg/dL (8.5-10.1); Chloride 106 mmol/L (98-107); Glucose 110 mg/dL (74-106); Potassium 3.7 mmol/L (3.5-5.1); Sodium 140 mmol/L (136-145); TSH (W/Ref FT4) 0.75 uIU/mL (0.36-3.74); Total Protein 7.2 g/dL (6.4-8.2); Tricyclic Antidepressants Negative (Negative)
[2021-10-31 20:41] LABS: COVID-19 PCR Negative (Negative)
[2021-10-31 20:58] LABS: Salicylate 5.5 mg/dL (<2.8)
[2021-10-31 21:00] LABS: Acetaminophen < 2 ug/mL (10-30)
[2021-10-31 23:44] LABS: HCG Quant, Pregnancy < 1 mIU/mL (1-3)
[2021-11-01 00:29] LABS: ETHANOL BLOOD < 3.0 mg/dL (<10)
[2021-11-01 06:09] VITALS: BP 127/78; PULSE 98; RESP 18; TEMP 36.7; O2SAT 96
== END 2021-11-01 06:12 | disposition home or self-care (01) ==
PROVIDERS: Physician Assistant; Emergency Provider Student in an Organized Health Care Education/Training Program; PCP Nurse Practitioner
DX: F41.9 Anxiety disorder, unspecified (principal); R45.851 Suicidal ideations; T40.5X1A Poisoning by cocaine, accidental (unintentional), initial encounter; R00.2 Palpitations
CPT/HCPCS: 36415; 80053; 80307; 87635; 93005; 96372; 99283; 99284; 80320; 80329; 81003; 81015; 84443; 84702; 85025; 87086; 93010; J2060

== ENCOUNTER 2021-11-28 16:20 | Emergency (ER) | payer MEDICAID, SELFPAY ==
[2021-11-28 16:07] VITALS: BP 132/86; PULSE 78; RESP 18; TEMP 36.7; O2SAT 98
[2021-11-28 16:32] LABS: Bilirubin Small (Negative); Blood Negative (Negative); Clarity Sl Cloudy (Clear); Glucose Negative (Negative); Ketones Trace mg/dL (Negative); Leukocyte Esterase Negative (Negative); Nitrite Negative (Negative); Specific Gravity >= 1.030 (1.005-1.025); pH 6.5 (5-8)
[2021-11-28 16:46] LABS: *AMPHETAMINES SCREEN URINE Negative (Negative); *BARBITURATES SCREEN URINE Negative (Negative); *BENZODIAZEPINES SCREEN URINE Negative (Negative); Cannabinoids THC Positive (Negative); Cocaine Screen,Urine Positive (Negative); METHADONE URINE SCREEN Negative (Negative); OPIATES URINE SCREEN Negative (Negative)
[2021-11-28 16:47] LABS: Bacteria Few HPF (Negative); C & S Indicated? No; Crystals Negative HPF (Negative); Epithelial Cells Many HPF (Negative); Mucus Heavy (Negative); Other Cells Few Spermatozoa (Negative); RBC 0-2 HPF (0-2)
[2021-11-28 16:49] LABS: Tricyclic Antidepressants Negative (Negative)
[2021-11-28 16:56] LABS: Abs Immature Grans 0.04 10^3/uL (0.0-0.06); Absolute Basophil Count 0.06 10^3/uL (0.0-0.2); Absolute Eosinophil Count 0.16 10^3/uL (0.0-0.7); Absolute Lymphocyte Count 2.24 10^3/uL (1.2-3.4); Absolute Neutrophil Count 5.97 10^3/uL (1.2-6.7); Basophils % 0.7; Eosinophils % 1.7; HCT 43.1 % (36.0-46.0); HGB 13.9 g/dL (11.2-15.7); Immature Grans % 0.4; Lymphocytes % 24.4; MCH 29.6 pg (27.0-33.0); MCHC 32.3 % (32.0-36.0); MCV 91.9 fL (80-95); MPV 10.5 fL (8.0-11.0); Monocytes % 7.6; Neutrophils % 65.2; Nucleated RBC 0 %; Platelet Count 239 10^3/uL (130-400); RBC 4.69 10^6/uL (3.93-5.22); RDW 13.5 % (11.7-14.6); RDW-SD 45.6 fL; WBC 9.17 10^3/uL (4.4-10.8)
--- NOTE | 2021-11-28 17:15 | RT.EKG_ITS ---
APPROVED REPORT Exam: Resting ECG Reason for Exam: substance abuse Patient Location: E HR:73 bpm ECG Measurements Heart Rate 73 AXIS MO 118 P 50 QRSd 81 QRS 57 QT 371 T 33 QTc 409 Conclusion Sinus arrhythmia...V-rate 59- 93, variation>10% sinus rhythm, with sinus arrhythmia, non ischemic
[2021-11-28 17:21] LABS: ALT 23 U/L (14-59); AST 16 U/L (15-37); Albumin 3.8 g/dL (3.4-5.0); Alkaline Phosphatase 95 U/L (46-116); Anion Gap 12.1 mmol/L (3-11); BUN 9 mg/dL (7-18); Bilirubin, Total 0.6 mg/dL (0.2-1.0); CO2 21.9 mmol/L (21.0-32.0); CREATININE 0.8 mg/dL (0.55-1.02); Calcium 8.9 mg/dL (8.5-10.1); Chloride 104 mmol/L (98-107); Glucose 124 mg/dL (74-106); Potassium 3.8 mmol/L (3.5-5.1); Sodium 138 mmol/L (136-145); TSH (W/Ref FT4) 0.32 uIU/mL (0.36-3.74); Total Protein 7.5 g/dL (6.4-8.2)
[2021-11-28] MEDS: hydrOXYzine HCL 50 MG TAB PO (17:42)
[2021-11-28 17:43] LABS: Acetaminophen < 2 ug/mL (10-30); ETHANOL BLOOD < 3.0 mg/dL (<10)
[2021-11-28 18:01] LABS: FREE T4 1.34 ng/dL (0.76-1.46)
--- NOTE | 2021-11-28 18:02 | W.ED.GENAD ---
Discharge Plan Disposition Patient Disposition: HOME Condition: Stable Discharge Details Clinical Impression: Depressive disorder, Anxiety Primary Care Provider: Estefani Landon ED Provider: Sophia Kirk Home Meds and New Rx's Prescriptions: Continued methylphenidate HCl 20 mg tablet 20 mg PO TID 0RF buprenorphine-naloxone 8-2 mg tablet, sublingual 20 mg Sublingual DAILY 0RF albuterol sulfate [Ventolin HFA] 90 mcg/actuation HFA aerosol inhaler 2 puff IH QID PRN (Reason: shortness of breath or wheezing) Qty: 6.7 1RF trazodone 150 mg tablet 150 mg PO DAILY 0RF quetiapine [Seroquel] 25 mg tablet 50 mg PO HS 0RF Label Comments: Take 1 or 2 tablet by mouth at bedtime gabapentin 600 mg tablet 1,200 mg PO TID 0RF Discharge Instructions Instructions: Anxiety (ED) Additional Instructions: continue safety plan agreed upon by with mental health plan for care bed on Tuesday, call mental health sooner if needed. Referrals: Estefani Landon, [employer] [Primary Care Provider] - Discharge Data Discharge Date/Time-TO BE ENTERED AT DEPARTURE: 11/28/21 20:20 Medical Decision Making patient presents by EMS for psychiatric evaluation. she is anxious and appears intoxicated or under influence of drugs. she is oriented and cooperative. she is given hydroxizine 50 mg PO and routine psychiatric medical screening initiated. Her labs essentially unremarkable, urine positive for cocaine. She is cleared medically she has responded well to the hydroxizine and is now calm. She under goes psychiatric evaluation and is plan is discharge to home with outpatient follow up. she is given seroquel 50 mg and gabapentin 600 mg as home medications she is scheduled to receive. she is discharged to home with outpatient follow up per mental health she denies suicidal ideation and is now calm and at her baseline. Medical Records Medical records reviewed: Yes I reviewed the patient's medical records. Lab Data Lab results reviewed: Yes I reviewed the patient's lab results. Labs: Laboratory Results - last 24 hr WBC 9.17 10^3/uL (4.4-10.8) 11/28/21 16:50 RBC 4.69 10^6/uL (3.93-5.22) 11/28/21 16:50 Hgb 13.9 g/dL (11.2-15.7) 11/28/21 16:50 Hct 43.1 % (36.0-46.0) 11/28/21 16:50 MCV 91.9 fL (80-95) 11/28/21 16:50 MCH 29.6 pg (27.0-33.0) 11/28/21 16:50 MCHC 32.3 % (32.0-36.0) 11/28/21 16:50 RDW 13.5 % (11.7-14.6) 11/28/21 16:50 Plt Count 239 10^3/uL (130-400) 11/28/21 16:50 MPV 10.5 fL (8.0-11.0) 11/28/21 16:50 Immature Gran % 0.4 11/28/21 16:50 Neutrophils % 65.2 11/28/21 16:50 Lymphocytes % 24.4 11/28/21 16:50 Monocytes % 7.6 11/28/21 16:50 Eosinophils % 1.7 11/28/21 16:50 Basophils % 0.7 11/28/21 16:50 Nucleated RBC % 0 % 11/28/21 16:50 Absolute Neutrophils 5.97 10^3/uL (1.2-6.7) 11/28/21 16:50 Absolute Lymphocytes 2.24 10^3/uL (1.2-3.4) 11/28/21 16:50 Absolute Monocytes 0.70 10^3/uL (0.1-0.8) 11/28/21 16:50 Absolute Eosinophils 0.16 10^3/uL (0.0-0.7) 11/28/21 16:50 Absolute Basophils 0.06 10^3/uL (0.0-0.2) 11/28/21 16:50 Sodium 138 mmol/L (136-145) 11/28/21 16:50 Potassium 3.8 mmol/L (3.5-5.1) 11/28/21 16:50 Chloride 104 mmol/L (98-107) 11/28/21 16:50 Carbon Dioxide 21.9 mmol/L (21.0-32.0) 11/28/21 16:50 Anion Gap 12.1 mmol/L (3-11) H 11/28/21 16:50 BUN 9 mg/dL (7-18) 11/28/21 16:50 Creatinine 0.8 mg/dL (0.55-1.02) 11/28/21 16:50 Estimated GFR/1.73 m2 >= 60.00 (mL/min/1.73m2) 11/28/21 16:50 Glucose 124 mg/dL (74-106) H 11/28/21 16:50 Calcium 8.9 mg/dL (8.5-10.1) 11/28/21 16:50 Total Bilirubin 0.6 mg/dL (0.2-1.0) 11/28/21 16:50 AST 16 U/L (15-37) 11/28/21 16:50 ALT 23 U/L (14-59) 11/28/21 16:50 Alkaline Phosphatase 95 U/L (46-116) 11/28/21 16:50 Total Protein 7.5 g/dL (6.4-8.2) 11/28/21 16:50 Albumin 3.8 g/dL (3.4-5.0) 11/28/21 16:50 TSH 0.32 uIU/mL (0.36-3.74) L 11/28/21 16:50 Free T4 1.34 ng/dL (0.76-1.46) 11/28/21 16:50 Urine Color Yellow (Yellow) 11/28/21 16:20 Urine Clarity Sl Cloudy (Clear) 11/28/21 16:20 Urine pH 6.5 (5-8) 11/28/21 16:20 Ur Specific [place] >= 1.030 (1.005-1.025) H 11/28/21 16:20 Urine Protein 30 mg/dL (Negative) H 11/28/21 16:20 Urine Ketones Trace mg/dL (Negative) H 11/28/21 16:20 Urine Blood Negative (Negative) 11/28/21 16:20 Urine Nitrite Negative (Negative) 11/28/21 16:20 Urine Bilirubin Small (Negative) H 11/28/21 16:20 Urine Urobilinogen 1.0 EU/dL (Up TO 0.2) H 11/28/21 16:20 Ur Leukocyte Esterase Negative (Negative) 11/28/21 16:20 Urine RBC 0-2 HPF (0-2) 11/28/21 16:20 Urine WBC 3-5 HPF (0-5) 11/28/21 16:20 Ur Epithelial Cells Many HPF (Negative) 11/28/21 16:20 Urine Crystals Negative HPF (Negative) 11/28/21 16:20 Urine Bacteria Few HPF (Negative) 11/28/21 16:20 Urine Mucus Heavy (Negative) 11/28/21 16:20 Urine Other Few [place] (Negative) 11/28/21 16:20 Ur Culture Indicated? No 11/28/21 16:20 Urine Glucose Negative mg/dL (Negative) 11/28/21 16:20 Salicylates 5.0 mg/dL (<2.8) 11/28/21 16:50 Urine Opiates Screen Negative (Negative) 11/28/21 16:20 Urine Methadone Screen Negative (Negative) 11/28/21 16:20 Acetaminophen < 2 ug/mL (10-30) 11/28/21 16:50 Ur Barbiturates Screen Negative (Negative) 11/28/21 16:20 Ur Tricyclics Screen Negative (Negative) 11/28/21 16:20 Ur Amphetamines Screen Negative (Negative) 11/28/21 16:20 U Benzodiazepines Scrn Negative (Negative) 11/28/21 16:20 Urine Cocaine Screen Positive (Negative) A 11/28/21 16:20 Ur THC Screen Positive (Negative) A 11/28/21 16:20 Ethyl Alcohol < 3.0 mg/dL (<10) 11/28/21 16:50 HPI General Date/Time Provider Initiated Documentation: 11/28/21 17:18. Information obtained by: patient and EMS. HPI Narrative: This is a 41 year old female known to [facility] for depression and suicidal ideation who presents to the ED by EMS with c/o anxiety and depression and admits she may be suicidal. denies plan to me, states she is extremely anxious accordingly. she denies any recent ingestion other than smoking marijuana. she denies any recent medical illness and states she is otherwise in her usual state of health. Related Data Home Medications Medication Instructions Recorded Confirmed buprenorphine 8 mg-naloxone 2 mg 20 mg SUBLINGUAL DAILY tab 01/06/21 11/28/21 sublingual tablet gabapentin 600 mg tablet 1,200 mg PO TID tab 01/06/21 11/28/21 methylphenidate HCl 20 mg tablet 20 mg PO TID tab 04/27/21 11/28/21 albuterol sulfate 90 mcg/actuation 2 puff IH QID PRN #6.7 gm 10/12/21 11/28/21 aerosol inhaler (Ventolin HFA) trazodone 150 mg tablet 150 mg PO DAILY 11/12/21 11/28/21 quetiapine 25 mg tablet (Seroquel) 50 mg PO HS 11/28/21 11/28/21 Previous Rx's Medication Instructions Recorded albuterol sulfate 90 mcg/actuation 2 puff IH QID PRN #6.7 gm 10/12/21 aerosol inhaler (Ventolin HFA) Allergies Allergy/AdvReac Type Severity Reaction Status Date / Time morphine Allergy Severe Hives Verified 11/28/21 16:10 Penicillins Allergy Severe Skin Rash Verified 11/28/21 16:10 dimethicone Allergy Intermediate Hives Verified 11/28/21 16:10 [From A \T\ D Emollient] glycerin Allergy Intermediate Hives Verified 11/28/21 16:10 [From A & D Emollient] stearyl alcohol Allergy Intermediate Hives Verified 11/28/21 16:10 [From A \T\ D Emollient] codeine Allergy Mild hives Verified 11/28/21 16:10 Carbapenems Allergy Unknown Verified 11/28/21 16:10 Cephalosporins Allergy Unknown hives Verified 11/28/21 16:10 quetiapine fumarate AdvReac Severe swelling Verified 11/28/21 16:10 [From Seroquel] lisdexamfetamine AdvReac Intermediate arm pain; Verified 11/28/21 16:10 [From Vyvanse] menorrhagia promethazine AdvReac Intermediate anxiety Verified 11/28/21 16:10 dinoprostone AdvReac Unknown Verified 11/28/21 16:10 General Stated Complaint: PsychEval MICHAEL: 2 Review of Systems All systems reviewed & are unremarkable except as noted in HPI and below Constitutional Constitutional: Denies fever(s) Cardiovascular Cardiovascular: Denies chest pain and Denies dyspnea Respiratory Respiratory: Denies dyspnea Gastrointestinal Gastrointestinal: Denies constipation, Denies nausea and Denies vomiting Genitourinary Genitourinary: Denies difficulty voiding and Denies urinary urgency Integumentary/Breasts Skin/Breast: Denies rash Psychiatric Psychiatric: Reports anxiety, Reports depression, Denies hopelessness, Denies homicidal ideation and Reports suicidal ideation [facility] All Active Problems (Updated 11/28/21 @ 20:01 by Sophia Kirk NP) Substance abuse (Acute 12/29/12) drug seeking behaivior. [facility] Smoker (Acute) Depressive disorder (Acute) Attention deficit hyperactivity disorder (Acute 09/10/13) Asthma (Acute) IBS (irritable bowel syndrome) (Chronic) Weight gain (Acute) Anxiety (Chronic) Dental abscess (Acute) Encounter for medical assessment (Acute) Accidental drug ingestion (Acute) Medical History (Updated 11/28/21 @ 20:01 by Sophia Kirk NP) Abnormal auditory perception (05/26/15) Acute appendicitis (09/10/13) Carpal tunnel syndrome (09/10/13) Chronic tonsillitis (09/10/13) Drug abuse and dependence Endometriosis Headache Pityriasis versicolor Second degree burn Shoulder pain (09/10/13) surgery Surgical History Cholecystectomy History of bilateral oophorectomy Oophrectomy, Both Status post cholecystectomy Family History Mother Alcohol abuse Father Alcohol abuse Brother No problems noted. Grandfather No problems noted. Grandfather Heart disease Grandmother Personal history of malignant neoplasm Grandmother No problems noted. Social History Smoking/Tobacco Use Status: Current every day Tobacco Type: cigarettes Smoking risk assessment performed?: Yes Alcohol Intake: former Drug use: Daily Substance use type: marijuana Do you feel safe at home: No Do you feel safe in your relationship?: Yes Exam Const General: disheveled and intoxicated appearing (restless and agitated. ) Nutritional Appearance: average body habitus Orientation: alert, awake and oriented x3 HENMT Head: normal to inspection, normocephalic and atraumatic Resp Effort & Inspection: normal respiratory effort Auscultation: clear to auscultation bilaterally Cardio Rate: regular rate Rhythm: regular rhythm Skin General skin exam: no rashes or lesions noted Neuro General: patient alert, patient awake, patient oriented x3 and no focal motor deficits Psych Appearance: well kempt and disheveled Speech and Movement: restless and speech not slurred Mood: anxious mood Affect: irritable affect Attitude: cooperative Thought Content: no delusions, no homicidality and suicidality Insight: limited Judgment: limited Course Vital Signs Vital signs: Vital Signs Temperature 36.7 C 11/28/21 16:07 Pulse 78 11/28/21 16:07 Respiratory Rate 18 11/28/21 16:07 Blood Pressure 132/86 11/28/21 16:07 Pulse Oximetry 98 11/28/21 16:07 Temperature 36.7 C 11/28/21 16:07 Temperature Source Temporal Artery Scan 11/28/21 16:07 Pulse 78 11/28/21 16:07 Respiratory Rate 18 11/28/21 16:07 Respiratory Effort Non-Labored 11/28/21 16:09 Blood Pressure 132/86 11/28/21 16:07 Blood Pressure Position Sitting 11/28/21 16:07 Pulse Oximetry 98 11/28/21 16:07 Oxygen Delivery Method Room Air 11/28/21 16:07 Oxygen Flow Rate 0 11/28/21 16:07 Pain Level 4 11/28/21 16:07 Lab/Test Results Lab/Test Results: Laboratory Tests Range/Units 11/28/21 11/28/21 11/28/21 16:20 16:20 16:50 WBC (4.4-10.8) 10^3/uL RBC (3.93-5.22) 10^6/uL Hgb (11.2-15.7) g/dL Hct (36.0-46.0) % MCV (80-95) fL MCH (27.0-33.0) pg MCHC (32.0-36.0) % RDW (11.7-14.6) % Plt Count (130-400) 10^3/uL MPV (8.0-11.0) fL Immature Gran % Neutrophils % Lymphocytes % Monocytes % Eosinophils % Basophils % Nucleated RBC % % Absolute Neutrophils (1.2-6.7) 10^3/uL Absolute Lymphocytes (1.2-3.4) 10^3/uL Absolute Monocytes (0.1-0.8) 10^3/uL Absolute Eosinophils (0.0-0.7) 10^3/uL Absolute Basophils (0.0-0.2) 10^3/uL Sodium (136-145) mmol/L 138 Potassium (3.5-5.1) mmol/L 3.8 Chloride (98-107) mmol/L 104 Carbon Dioxide (21.0-32.0) mmol/L 21.9 Anion Gap (3-11) mmol/L 12.1 H BUN (7-18) mg/dL 9 Creatinine (0.55-1.02) mg/dL 0.8 Estimated GFR/1.73 m2 (mL/min/1.73m2) >= 60.00 Glucose (74-106) mg/dL 124 H Calcium (8.5-10.1) mg/dL 8.9 Total Bilirubin (0.2-1.0) mg/dL 0.6 AST (15-37) U/L 16 ALT (14-59) U/L 23 Alkaline Phosphatase (46-116) U/L 95 Total Protein (6.4-8.2) g/dL 7.5 Albumin (3.4-5.0) g/dL 3.8 TSH (0.36-3.74) uIU/mL 0.32 L Free T4 (0.76-1.46) ng/dL 1.34 Urine Color (Yellow) Yellow Urine Clarity (Clear) Sl Cloudy Urine pH (5-8) 6.5 Ur Specific [place] (1.005-1.025) >= 1.030 H Urine Protein (Negative) mg/dL 30 H Urine Ketones (Negative) mg/dL Trace H Urine Blood (Negative) Negative Urine Nitrite (Negative) Negative Urine Bilirubin (Negative) Small H Urine Urobilinogen (Up TO 0.2) EU/dL 1.0 H Ur Leukocyte Esterase (Negative) Negative Urine RBC (0-2) HPF 0-2 Urine WBC (0-5) HPF 3-5 Ur Epithelial Cells (Negative) HPF Many Urine Crystals (Negative) HPF Negative Urine Bacteria (Negative) HPF Few Urine Mucus (Negative) Heavy Urine Other (Negative) Few [place] Ur Culture Indicated? No Urine Glucose (Negative) mg/dL Negative Salicylates (<2.8) mg/dL Urine Opiates Screen (Negative) Negative Urine Methadone Screen (Negative) Negative Acetaminophen (10-30) ug/mL Ur Barbiturates Screen (Negative) Negative Ur Tricyclics Screen (Negative) Negative Ur Amphetamines Screen (Negative) Negative U Benzodiazepines Scrn (Negative) Negative Urine Cocaine Screen (Negative) Positive A Ur THC Screen (Negative) Positive A Ethyl Alcohol (<10) mg/dL < 3.0 Range/Units 11/28/21 11/28/21 16:50 16:50 WBC (4.4-10.8) 10^3/uL 9.17 RBC (3.93-5.22) 10^6/uL 4.69 Hgb (11.2-15.7) g/dL 13.9 Hct (36.0-46.0) % 43.1 MCV (80-95) fL 91.9 MCH (27.0-33.0) pg 29.6 MCHC (32.0-36.0) % 32.3 RDW (11.7-14.6) % 13.5 Plt Count (130-400) 10^3/uL 239 MPV (8.0-11.0) fL 10.5 Immature Gran % 0.4 Neutrophils % 65.2 Lymphocytes % 24.4 Monocytes % 7.6 Eosinophils % 1.7 Basophils % 0.7 Nucleated RBC % % 0 Absolute Neutrophils (1.2-6.7) 10^3/uL 5.97 Absolute Lymphocytes (1.2-3.4) 10^3/uL 2.24 Absolute Monocytes (0.1-0.8) 10^3/uL 0.70 Absolute Eosinophils (0.0-0.7) 10^3/uL 0.16 Absolute Basophils (0.0-0.2) 10^3/uL 0.06 Sodium (136-145) mmol/L Potassium (3.5-5.1) mmol/L Chloride (98-107) mmol/L Carbon Dioxide (21.0-32.0) mmol/L Anion Gap (3-11) mmol/L BUN (7-18) mg/dL Creatinine (0.55-1.02) mg/dL Estimated GFR/1.73 m2 (mL/min/1.73m2) Glucose (74-106) mg/dL Calcium (8.5-10.1) mg/dL Total Bilirubin (0.2-1.0) mg/dL AST (15-37) U/L ALT (14-59) U/L Alkaline Phosphatase (46-116) U/L Total Protein (6.4-8.2) g/dL Albumin (3.4-5.0) g/dL TSH (0.36-3.74) uIU/mL Free T4 (0.76-1.46) ng/dL Urine Color (Yellow) Urine Clarity (Clear) Urine pH (5-8) Ur Specific [place] (1.005-1.025) Urine Protein (Negative) mg/dL Urine Ketones (Negative) mg/dL Urine Blood (Negative) Urine Nitrite (Negative) Urine Bilirubin (Negative) Urine Urobilinogen (Up TO 0.2) EU/dL Ur Leukocyte Esterase (Negative) Urine RBC (0-2) HPF Urine WBC (0-5) HPF Ur Epithelial Cells (Negative) HPF Urine Crystals (Negative) HPF Urine Bacteria (Negative) HPF Urine Mucus (Negative) Urine Other (Negative) Ur Culture Indicated? Urine Glucose (Negative) mg/dL Salicylates (<2.8) mg/dL 5.0 Urine Opiates Screen (Negative) Urine Methadone Screen (Negative) Acetaminophen (10-30) ug/mL < 2 Ur Barbiturates Screen (Negative) Ur Tricyclics Screen (Negative) Ur Amphetamines Screen (Negative) U Benzodiazepines Scrn (Negative) Urine Cocaine Screen (Negative) Ur THC Screen (Negative) Ethyl Alcohol (<10) mg/dL POC- Test(urine) Negative
[2021-11-28] MEDS: Gabapentin 300 MG CAP 600 MG PO (19:56)
[2021-11-28] MEDS: QUEtiapine 25 MG TAB 50 MG PO (19:56)
== END 2021-11-28 20:20 | disposition home or self-care (01) ==
PROVIDERS: Emergency Provider Nurse Practitioner Acute Care; PCP Nurse Practitioner
DX: F32.9 Major depressive disorder, single episode, unspecified (principal); F41.9 Anxiety disorder, unspecified; F14.10 Cocaine abuse, uncomplicated
CPT/HCPCS: 80053; 80307; 81025; 93005; 99283; 80320; 80329; 81003; 81015; 84439; 84443; 85025; 93010; J3490

== ENCOUNTER → 2022-01-30 10:34 | Outpatient (CLI) | payer MEDICAID, SELFPAY ==
--- NOTE | 2022-01-30 10:30 | DI.RAD_ITS ---
Exam(s) XR FOOT RT COMPLETE EXAM: XR FOOT RT COMPLETE CLINICAL HISTORY: evaulate fx. TECHNIQUE: 2D digital imaging was performed. Three views. COMPARISON: No exams were available for comparison FINDINGS: BONES: No acute fracture is present. No bony destructive lesion is seen. JOINTS: No dislocation present. SOFT TISSUE: Normal. IMPRESSION: Unremarkable radiographs of the right foot. DATA REPOSITORY: RADIATION DOSE DELIVERED:
--- NOTE | 2022-01-30 10:30 | DI.RAD_ITS ---
Exam(s) XR ANKLE RT COMPLETE EXAM: XR ANKLE RT COMPLETE CLINICAL HISTORY: evaluate fx. TECHNIQUE: 2D digital imaging was performed. Three views. COMPARISON: CR LEFT ANKLE 2 VIEW from 06/05/2014 FINDINGS: BONES: No acute fracture is present. No bony destructive lesion is seen. Ossicles adjacent to cubo id. No talar dome defect. JOINTS: The ankle mortise is normally aligned. SOFT TISSUE: Swelling around malleoli. IMPRESSION: Soft tissue swelling. DATA REPOSITORY: RADIATION DOSE DELIVERED:
--- NOTE | 2022-01-30 11:04 | DI.VRAD_ITS ---
PROCEDURE INFORMATION: Exam: XR Right Foot Exam date and time: 01/30/2022 10:44 AM Age: 41 years old Clinical indication: Injury or trauma; Fall; Sprain or strain; Foot; Right TECHNIQUE: Imaging protocol: XR Right foot. Views: 3 or more views. COMPARISON: CR XR ANKLE RT COMPLETE 01/30/2022 10:43 AM FINDINGS: Bones/joints: No acute fracture or dislocation. Soft tissues: Soft tissue swelling. IMPRESSION: Nonspecific soft tissue swelling without acute bony findings. Dictated and Authenticated by: Ziggy Loco MD. Ordering:HANNY Luque MD
--- NOTE | 2022-01-30 11:07 | DI.VRAD_ITS ---
PROCEDURE INFORMATION: Exam: XR Right Ankle Exam date and time: 01/30/2022 10:43 AM Age: 41 years old Clinical indication: Injury or trauma; Fall; Sprain or strain; Foot; Right TECHNIQUE: Imaging protocol: XR Right ankle. Views: 3 or more views. COMPARISON: No relevant images were readily available for comparison purposes. FINDINGS: Bones/joints: No acute fracture or dislocation. Soft tissues: Soft tissue swelling about the ankle. IMPRESSION: Prominent soft tissue swelling about the ankle without acute bony findings. Dictated and Authenticated by: Ziggy Loco MD. Ordering:HANNY Luque MD
== END ==
PROVIDERS: PCP Nurse Practitioner; Visit Provider Nurse Practitioner Family
DX: M79.671 Pain in right foot (principal); M25.571 Pain in right ankle and joints of right foot; M79.89 Other specified soft tissue disorders
CPT/HCPCS: 73610; 73630

== ENCOUNTER → 2022-04-20 00:37 | Outpatient (CLI) | payer MEDICAID, SELFPAY ==
--- NOTE | 2022-04-20 07:30 | DI.US_ITS ---
Exam(s) US PELVIS TRANSVAGINAL EXAM: US PELVIS TRANSVAGINAL CLINICAL HISTORY: RLQ pain, R10.31 TECHNIQUE: Ultrasound of the pelvis was performed both transabdominal and transvaginal. COMPARISON: US ABD PELVIS TRANSVAG from 07/07/2017 FINDINGS: UTERUS: Anteverted Measures 10 cm length x 4.4 cm AP x 5.8 cm wide. There are no uterine fibroids. Endometrial thickness measures 18 mm. There is no fluid in the endometrial canal. CERVIX: There are no obvious nabothian cysts. RIGHT OVARY: Measures 3.7 x 2.9 x 1.5 cm Contained dominant follicle measuring 1.7 cm LEFT OVARY: Not seen and may be surgically absent. IMPRESSION: 1. Thickened endometrium measures 18 millimeters. This requires close follow-up 2. Left ovary surgically absent. Right ovary contains a dominant follicle measuring 17. 3. No free fluid evident in the adnexal regions and cul-de-sac. DATA REPOSITORY:
== END ==
PROVIDERS: PCP Nurse Practitioner; Visit Provider Physician Assistant
DX: R10.31 Right lower quadrant pain (principal); R93.89 Abnormal findings on diagnostic imaging of other specified body structures; Z90.721 Acquired absence of ovaries, unilateral
CPT/HCPCS: 76830; 76856

== ENCOUNTER 2022-04-23 17:00 | Outpatient (REF) | payer MEDICAID, SELFPAY ==
[2022-04-27 07:21] LABS: Chlamydia Result Negative (Negative); GC Result Negative (Negative)
== END 2022-04-23 17:01 | disposition home or self-care (01) ==
LOC: LBN 17:00
PROVIDERS: PCP Nurse Practitioner; Visit Provider Nurse Practitioner Family
DX: R10.2 Pelvic and perineal pain (principal); Z11.3 Encounter for screening for infections with a predominantly sexual mode of transmission; R39.89 Other symptoms and signs involving the genitourinary system
CPT/HCPCS: 87491; 87591; 87086

== ENCOUNTER 2022-04-28 19:53 | Outpatient (REF) | payer MEDICAID, SELFPAY | END 2022-04-28 19:54 | disposition home or self-care (01) | LOC: LBN 19:53 | PROVIDERS: PCP Nurse Practitioner; Visit Provider Obstetrics & Gynecology | DX: R10.2 Pelvic and perineal pain (principal); N89.8 Other specified noninflammatory disorders of vagina | CPT/HCPCS: 87480; 87510; 87660 ==

== ENCOUNTER 2023-03-09 00:04 | Emergency (ER) | payer MEDICAID, SELFPAY ==
--- NOTE | 2023-03-09 | DI.RAD_ITS ---
Exam(s) XR ABDOMEN FLAT UPRIGHT EXAM: 2D digital imaging was performed. CLINICAL HISTORY: pain. COMPARISON: No exams were available for comparison TECHNIQUE: Supine and upright views of the abdomen was performed. Three images were obtained. FINDINGS: LUNG BASES: Clear. BOWEL GAS PATTERN: Nondistended. There is a large amount of stool in the colon. FREE AIR: None. CALCIFICATIONS: No radiopaque calcifications. OSSEOUS STRUCTURES: Normal for age. OTHER FINDINGS: Surgical clips are seen in the right upper quadrant which may represent a cholecystec melva. IMPRESSION: No evidence of bowel obstruction. Large amount of stool in the colon. DATA REPOSITORY: RADIATION DOSE DELIVERED:
[2023-03-09 00:06] VITALS: BP 121/94; PULSE 96; RESP 18; TEMP 36.6; O2SAT 100
--- NOTE | 2023-03-09 00:15 | W.ED.GENAD ---
Discharge Plan Discharge Details Chief Complaint: Abd Prob Clinical Impression: Abdominal pain, UTI (urinary tract infection), Constipation Primary Care Provider: Jerry James ED Provider: Ototniel Castellanos Home Meds and New Rx's Prescriptions: New sulfamethoxazole-trimethoprim [Bactrim DS] 800-160 mg tablet 1 tab PO BID 7 Days Qty: 14 0RF docusate sodium [Colace] 100 mg capsule 100 mg PO BID Qty: 20 0RF No Action methylphenidate HCl 20 mg tablet 20 mg PO TID buprenorphine-naloxone 8-2 mg tablet, sublingual 20 mg Sublingual DAILY trazodone 150 mg tablet 100 mg PO HS albuterol sulfate [ProAir HFA] 90 mcg/actuation HFA aerosol inhaler See Rx Instructions .ROUTE .COMPLEX Qty: 8.5 0RF Dose Instruction: INHALE 2 PUFFS BY MOUTH FOUR TIMES DAILY NEEDED FOR SHORTNESS OF BREATH OR WHEEZING Rx Instructions: INHALE 2 PUFFS BY MOUTH FOUR TIMES DAILY NEEDED FOR SHORTNESS OF BREATH OR WHEEZING quetiapine [Seroquel] 25 mg tablet 75 mg PO HS Patient Comments: Take 1 or 2 tablet by mouth at bedtime Rx Instructions: Rx'd by JUSTIN gabapentin 600 mg tablet 1,200 mg PO TID Discharge Instructions Instructions: Constipation (ED), Urinary Tract Infection in Women (ED), Abdominal Pain (ED) HPI General Date/Time Provider Initiated Documentation: 03/09/23 00:09. HPI Narrative: 42 year old female with hx of substance abuse, depression/anxiety, presents to the ED via EMS with c/o 2 weeks abd pain. She says that it hurts all over, has had intermittent bouts of sweating, but says that today her sweating episode wouldn't go away, which is why came to the ED. No known fever/chills. She has had some nausea. No diarrhea, states no BM in 2 days. Pt did state to RN that her providers starting to try and cut her suboxone back 3 weeks ago, and not tolerating well. She has had some urinary sx's, as well. Related Data Home Medications Medication Instructions Recorded Confirmed buprenorphine 8 mg-naloxone 2 mg 20 mg sublingual DAILY 01/06/21 05/05/22 sublingual tablet gabapentin 600 mg tablet 1,200 mg PO TID 01/06/21 03/09/23 methylphenidate HCl 20 mg tablet 20 mg PO TID 04/27/21 03/09/23 quetiapine 25 mg tablet (Seroquel) 75 mg PO HS 01/21/22 03/09/23 trazodone 150 mg tablet 100 mg PO HS 01/21/22 03/09/23 albuterol sulfate 90 mcg/actuation See Rx Instructions .Route 11/15/22 aerosol inhaler (ProAir HFA) .COMPLEX #8.5 grams docusate sodium 100 mg capsule 100 mg PO BID #20 caps 03/09/23 (Colace) sulfamethoxazole 800 1 tab PO BID 7 days #14 tabs 03/09/23 mg-trimethoprim 160 mg tablet (Bactrim DS) Previous Rx's Medication Instructions Recorded albuterol sulfate 90 mcg/actuation See Rx Instructions .Route 11/15/22 aerosol inhaler (ProAir HFA) .COMPLEX #8.5 grams docusate sodium 100 mg capsule 100 mg PO BID #20 caps 03/09/23 (Colace) sulfamethoxazole 800 1 tab PO BID 7 days #14 tabs 03/09/23 mg-trimethoprim 160 mg tablet (Bactrim DS) Allergies Allergy/AdvReac Type Severity Reaction Status Date / Time morphine Allergy Severe Hives Verified 05/05/22 09:26 Penicillins Allergy Severe Skin Rash Verified 05/05/22 09:26 dimethicone Allergy Intermediate Hives Verified 05/05/22 09:26 [From A \T\ D Emollient] glycerin Allergy Intermediate Hives Verified 05/05/22 09:26 [From A & D Emollient] stearyl alcohol Allergy Intermediate Hives Verified 05/05/22 09:26 [From A \T\ D Emollient] codeine Allergy Mild hives Verified 05/05/22 09:26 Carbapenems Allergy Unknown Verified 05/05/22 09:26 Cephalosporins Allergy Unknown hives Verified 05/05/22 09:26 quetiapine fumarate AdvReac Severe swelling Verified 05/05/22 09:26 [From Seroquel] lisdexamfetamine AdvReac Intermediate arm pain; Verified 05/05/22 09:26 [From Vyvanse] menorrhagia promethazine AdvReac Intermediate anxiety Verified 05/05/22 09:26 dinoprostone AdvReac Unknown Verified 05/05/22 09:26 General Stated Complaint: Abd Prob MICHAEL: 3 Review of Systems Narrative: CONST: no fever or chills HEENT: no sore throat SKIN: no rashes PULM: no sob, no cough CARD: no cp, no palpitations ABD: +abd pain EXTR: no swelling NEURO: No focal weakness PFSH All Active Problems (Updated 03/09/23 @ 03:24 by Ottoniel Castellanos MD) UTI (urinary tract infection) (Acute) Constipation (Acute) Vaginal discharge (Acute) Incontinence (Acute) Abdominal pain (Acute) Substance abuse (Acute 12/29/12) drug seeking behaivior. Intensive Outpatient Program ([facility] [place] Smoker (Acute) Depressive disorder (Acute) Attention deficit hyperactivity disorder (Acute 09/10/13) Asthma (Acute) IBS (irritable bowel syndrome) (Chronic) Weight gain (Acute) Anxiety (Chronic) Medical History (Updated 03/09/23 @ 03:24 by Ottoniel Castellanos MD) Carpal tunnel syndrome (09/10/13) Chronic tonsillitis (09/10/13) Dental abscess Endometriosis Headache Pityriasis versicolor Surgical History History of left oophorectomy For endometriosis Status post cholecystectomy Family History Mother Alcohol abuse Father Alcohol abuse Brother No problems noted. Grandfather No problems noted. Grandfather Heart disease Grandmother Personal history of malignant neoplasm Grandmother No problems noted. Social History Smoking/Tobacco Use Status: Current every day Tobacco Type: cigarettes Smoking risk assessment performed?: Yes Alcohol Intake: former Drug use: Daily Substance use type: marijuana Details: former substance abuse pt. states she has been clearn 01/20/15 Do you feel safe at home: Yes Do you feel safe in your relationship?: Yes History History 13 Para 5 Hx # Term Pregnancies Multiple births Hx # Pregnancies 5 Ectopic pregnancies 2 AB induced 4 Hx Number of Living Children AB spontaneous Past Pregnancies Del. Date GA/Weeks # Preg Succ Route Wgt Sex Labor Lgth Anesthesia Location Prov Complic 05/19/97 36 No Yes vaginal Female [facility] 02/05/02 36 No Yes vaginal Female [facility] 03/18/03 36 No Yes vaginal Female [facility] 10/11/05 36 No Yes vaginal Female [facility] 03/08/07 36 No Yes vaginal Male [facility] Delivery Date: 03/18/03 Last Updated by: Liss Holland forceps used per pt Exam Narrative Exam Narrative: Const: appears much older then stated age; histrionic appearing HEENT: normocephalic, atraumatic; MMM Lungs: CTA, no wheezing or rales Heart: RRR Abd: soft, NT/ND Ext: well perfused Neuro: non-focal Skin: no rashes Course 42 yo female with c/o 2 weeks of abd pain, non specific, and feels sx's may be related to her meds being changed. Will check labs, xrays, and IVF. Reevaluation(s) Initial Evaluation: 100- pt screaming and yelling repeatedly, reminded by staff that is not appropriate, but, also, may be having some dystonic reaction to the droperidol, so ordered benadryl. Pt refusing the benadryl. Reevaluation: Pt left without xray results. My read was moderate to large fecal burden, advised starting colace. UA consistent with UTI, start on Bactrim, noted to have several abx allergies. Labs overall, reasonable. Vital Signs Vital signs: Vital Signs Temperature 36.6 C 03/09/23 00:06 Pulse 96 H 03/09/23 00:06 Respiratory Rate 18 03/09/23 00:06 Blood Pressure 121/94 H 03/09/23 00:06 Pulse Oximetry 100 03/09/23 00:06 Temperature 36.6 C 03/09/23 00:06 Pulse 96 H 03/09/23 00:06 Respiratory Rate 18 03/09/23 00:06 Respiratory Effort Normal, Non-Labored 03/09/23 00:11 Blood Pressure 121/94 H 03/09/23 00:06 Blood Pressure Position Sitting 03/09/23 00:06 Pulse Oximetry 100 03/09/23 00:06 Oxygen Delivery Method Room Air 03/09/23 00:06 Oxygen Flow Rate 0 03/09/23 00:06 Pain Level 7 03/09/23 00:06
[2023-03-09 00:29] LABS: Lactate 0.7 mmol/L (0.6-1.4)
[2023-03-09] MEDS: Normal Saline 1,000 ML 1000 ML IV (00:29)
[2023-03-09] MEDS: Ketorolac 30 MG/ML VIAL IVP (00:29)
--- NOTE | 2023-03-09 00:30 | RT.EKG_ITS ---
APPROVED REPORT Exam: Resting ECG Reason for Exam: sob Patient Location: E HR:84 bpm ECG Measurements Heart Rate 84 AXIS DE 133 P 34 QRSd 87 QRS 23 QT 372 T 30 QTc 441 Conclusion Sinus rhythm...normal P axis, V-rate 60- 99 84 bpm
[2023-03-09 00:49] LABS: HCT 48.1 % (36.0-46.0); HGB 15.6 g/dL (11.2-15.7); MCH 29.3 pg (27.0-33.0); MCHC 32.4 % (32.0-36.0); MCV 90 fL (80-95); MPV 10.5 fL (8.0-11.0); Platelet Count 263 10^3/uL (130-400); RBC 5.32 10^6/uL (3.93-5.22); RDW 13.6 % (11.7-14.6); RDW-SD 45.7 fL; WBC 12.87 10^3/uL (4.4-10.8)
[2023-03-09] MEDS: Droperidol 5 MG/2 ML VIAL 2.5 MG IVP (00:57)
[2023-03-09 01:02] LABS: ALT 20 U/L (14-59); AST 10 U/L (15-37); Albumin 3.6 g/dL (3.4-5.0); Alkaline Phosphatase 139 U/L (46-116); Anion Gap 5.8 mmol/L (3-11); BUN 8 mg/dL (7-18); Bilirubin, Total 0.5 mg/dL (0.2-1.0); CO2 29.2 mmol/L (21.0-32.0); CREATININE 0.9 mg/dL (0.55-1.02); Calcium 8.7 mg/dL (8.5-10.1); Chloride 105 mmol/L (98-107); Estimated GFR 82.37 (mL/min/1.73m2); Glucose 110 mg/dL (74-106); Potassium 3.8 mmol/L (3.5-5.1); Sodium 140 mmol/L (136-145); Total Protein 7.7 g/dL (6.4-8.2)
[2023-03-09 02:07] LABS: Bilirubin Small (Negative); Blood Trace-intact (Negative); Clarity Sl Cloudy (Clear); Glucose Negative (Negative); Ketones Negative (Negative); Leukocyte Esterase Trace (Negative); Nitrite Positive (Negative); Specific Gravity 1.025 (1.005-1.025); Urobilinogen 0.2 mg/dL (Up to 0.2); pH 5.5 (5-8)
--- NOTE | 2023-03-09 02:19 | NUR.NOTE ---
@0049- Pt is screaming in room stating Im hot! I want to take a fucking shower!!! I'm sweating! What the fuck is wrong with me!!! Ords for droperidol requested and ordered. Pt re-directed to not scream in the ed. When asked she yells I am sorry! I'm not trying to fucking yell at you!
[2023-03-09 02:22] LABS: *AMPHETAMINES SCREEN URINE Positive (Negative); *BARBITURATES SCREEN URINE Negative (Negative); *BENZODIAZEPINES SCREEN URINE Negative (Negative); Cannabinoids THC Positive (Negative); Cocaine Screen,Urine Negative (Negative); METHADONE URINE SCREEN Negative (Negative); OPIATES URINE SCREEN Negative (Negative)
[2023-03-09 02:23] LABS: Bacteria Moderate HPF (Negative); C & S Indicated? No/Sq. Contamination; Casts Negative LPF (Negative); Crystals Negative HPF (Negative); Epithelial Cells Many HPF (Negative); Mucus Trace (Negative)
[2023-03-09 02:25] LABS: Tricyclic Antidepressants Negative (Negative)
[2023-03-09] MEDS: Gabapentin 300 MG CAP 600 MG PO (02:35)
[2023-03-09] MEDS: Sulfameth/Trimeth DS TAB 1 TAB PO (02:35)
--- NOTE | 2023-03-09 04:04 | NUR.NOTE ---
@0105-Pt pulled out IV. Catheter is intact. Went in to room with supplies to start 2nd line. Pt refused and refused charisma. aware.
--- NOTE | 2023-03-09 04:31 | DI.[facility]AD_ITS ---
PROCEDURE INFORMATION: Exam: XR Abdomen Exam date and time: 03/09/2023 2:02 AM Age: 42 years old Clinical indication: Abdominal pain; Generalized TECHNIQUE: Imaging protocol: Radiologic exam of the abdomen. Views: 2 Views. Upright and supine views. COMPARISON: CR XR PORTABLE CHEST AP 10/23/2021 4:42 PM FINDINGS: Gastrointestinal tract: There is a nonspecific nonobstructive bowel gas pattern. There is a large amount of retained stool in the left colon and rectum. Intraperitoneal space: No visible pneumoperitoneum. Organs: Cholecystectomy clips are noted. Bones/joints: Unremarkable for age. Soft tissues: No suspicious soft tissue calcifications. IMPRESSION: Large amount of retained stool in the left colon and rectum. No findings to suggest bowel obstruction. Dictated and Authenticated by: Lupe Maurice MD. Ordering:WENDI Alcazar MD
== END 2023-03-09 04:12 ==
PROVIDERS: Emergency Provider Emergency Medicine; PCP Nurse Practitioner Family
DX: R10.9 Unspecified abdominal pain (principal); F11.21 Opioid dependence, in remission; N39.0 Urinary tract infection, site not specified; K59.00 Constipation, unspecified; F41.9 Anxiety disorder, unspecified; F32.A Depression, unspecified
CPT/HCPCS: 36415; 80053; 80307; 81025; 85027; 93005; 96361; 96374; 96375; 99284; 74019; 81003; 81015; 83605; 93010; J1790; J1885

== ENCOUNTER 2025-04-03 21:34 | Outpatient (REF) | payer MEDICAID, SELFPAY ==
[2025-04-04 12:15] LABS: Chlamydia Result Negative (Negative); GC Result Negative (Negative)
== END 2025-04-03 21:35 | disposition home or self-care (01) ==
LOC: LBN 21:34
PROVIDERS: PCP Nurse Practitioner Family; Visit Provider Physician Assistant
DX: N39.0 Urinary tract infection, site not specified (principal); Z11.3 Encounter for screening for infections with a predominantly sexual mode of transmission; R30.0 Dysuria
CPT/HCPCS: 87491; 87591; 87086; 87480; 87510; 87660

== ENCOUNTER 2025-07-23 07:27 | Emergency (ER) | payer MEDICAID, SELFPAY ==
[2025-07-23] VITALS (12 sets, daily range): BP systolic 132–149; BP diastolic 71–89; PULSE 58–71; RESP 13–23; TEMP 37.2; O2SAT 97–100
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
--- NOTE | 2025-07-23 07:30 | DI.CT_ITS ---
Exam(s) CT THORACIC LUMBAR SPINE WO CT CHEST/ABD/PEL W EXAM: CT CHEST/ABD/PEL W CLINICAL HISTORY: trauma. TECHNIQUE: Imaging Protocol: Axial computed tomography images with coronal and sagittal reformatted images were created and reviewed. Computer aided detection (CAD) was utilized. Images of the thoracic and lumbar spine were reconstructed in axial, sagittal and coronal planes in bone and soft tissue algorithm. CONTRAST MATERIAL: Intravenous: Omnipaque 350 Contrast volume:75 ml Oral: / no COMPARISON: CT RENAL COLIC WO CONTRAST from 07/13/[address] THORACIC LUMBAR SPINE WO from 07/23/2025 FINDINGS: CHEST: Exam is somewhat limited by motion and patient arm positioning. Pulmonary parenchyma: The lungs are suboptimally inflated. There are dependent changes at the lung bases. There is respiratory motion at the lung bases. Consolidation and nodular infiltrates in the lingula. A few nodular infiltrates are noted in the left lower lobe. Others of small nodular infiltrates are noted in the right lower lobe and right middle lobe. no dominant measurable mass. Tracheobronchial tree: No bronchiectasis. No mucous plugging.No bronchial wall thickening. Pleura: No effusion or pneumothorax. Mediastinum: Within normal limits. Pulmonary arteries: No visible emboli. Cardiovascular: No pericardial effusion. Thoracic aorta non-dilated. Bones/thoracic spine: Mild scoliosis. No lytic or blastic lesions. No compression fractures. No evidence of rib fractures. Soft tissues: Unremarkable. ABDOMEN and PELVIS: Exam is limited by streak artifact secondary to patient arm positioning. Liver: Normal density. No suspicious mass. Gallbladder and biliary tract: Cholecystectomy. Mild dilatation of the common bile duct which tapers normally into the pancreatic head. Likely reservoir effect related to cholecystectomy.. Pancreas: Normal density, no abnormal calcifications or inflammatory process. Spleen: Normal. Kidneys: Normal size, contour and axis. No radiodense stones. No obstructive uropathy. No suspicious masses seen. Adrenal glands: No masses seen. Aorta: Abdominal portion non-dilated. Lymph nodes: Within normal limits. Soft tissues: Unremarkable. Bladder: Unremarkable. Bowel: No obstruction or bowel wall thickening. Stool noted throughout the colon, consistent with constipation. The small bowel appears normal. No evidence of appendicitis. Peritoneal cavity: Small amount of fluid in the cul-de-sac, likely physiologic. No focal collection. No mesenteric inflammatory response. No free air. Bones/lumbar spine: Mild scoliosis. No evidence of spine or pelvic fracture. Small endplate osteophytes. The disc spaces are maintained. Reproductive organs: Unremarkable for age. IMPRESSION: No acute abnormality in the chest, abdomen or pelvis. The preliminary [facility] report was reviewed. RADIATION DOSE DELIVERED: Total DLP DATA REPOSITORY: All CT scans at this facility are submitted to the National Radiology Data Registry (NRDR) Dose Index Registry (DIR) with the [employer] (ACR). RADIATION OPTIMIZATION: All CT scans at this facility use at least one of these dose optimization techniques: automated exposure control; mA and/or kV adjustment per patient size (includes targeted exams where dose is matched to clinical indication); or iterative reconstruction.
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
[2025-07-23] MEDS: fentaNYL 100 MCG/2 ML VIAL 75 MCG IVP (07:37)
--- NOTE | 2025-07-23 07:39 | DI.RAD_ITS ---
Exam(s) XR KNEE RT 2V AP,LAT EXAM: XR KNEE RT 2V AP,LAT CLINICAL HISTORY: Right knee pain. TECHNIQUE: 2D digital imaging was performed of the right knee. Two views obtained. AP and cross-table lateral views were obtained. COMPARISON: CR RIGHT KNEE 3 VIEWS from 12/14/2012 CR,XR XR ABDOMEN FLAT UPRIGHT from 03/09/2023 FINDINGS: BONES: No acute fracture is present. No bony destructive lesion is seen. JOINTS: The knee is normally aligned. No joint effusion is seen. SOFT TISSUE: Normal. IMPRESSION: Unremarkable radiographs of the right knee. DATA REPOSITORY: RADIATION DOSE DELIVERED:
[2025-07-23 07:40] LABS: BE (Venous) -1 mmol/L (-2-3); HCO3 (Venous) 25 mmol/L (23-28); O2 Sat (Venous) 49 %; TCO2 (Venous) 24 mmol/L (24-29); pCO2 (Venous) 50 mmHg (41-51); pO2 (Venous) 29 mmHg
[2025-07-23 07:41] LABS: HCT 38.6 % (36.0-46.0); HGB 12.4 g/dL (11.2-15.7); Immature Grans % 1.0 %; MCH 29.6 pg (27.0-33.0); MCHC 32.1 % (32.0-36.0); MCV 92 fL (80-95); MPV 10.1 fL (8.0-11.0); Platelet Count 281 10^3/uL (130-400); RBC 4.19 10^6/uL (3.93-5.22); RDW 13.2 % (11.7-14.6); RDW-SD 44.7 fL; WBC 10.52 10^3/uL (4.4-10.8)
[2025-07-23 07:42] LABS: Abs Immature Grans 0.10 10^3/uL (0.0-0.06)
[2025-07-23 07:55] LABS: INR 0.9 (0.9-1.1); Prothrombin Time 9.5 sec (9.1-11.1)
[2025-07-23 07:59] LABS: ALT 98 U/L (14-59); AST 102 U/L (15-37); Albumin 3.2 g/dL (3.4-5.0); Alkaline Phosphatase 113 U/L (46-116); Anion Gap 8.8 mmol/L (3-11); BUN 10 mg/dL (7-18); Bilirubin, Total 0.5 mg/dL (0.2-1.0); CO2 27.2 mmol/L (21.0-32.0); Calcium 8.6 mg/dL (8.5-10.1); Chloride 105 mmol/L (98-107); Estimated GFR 93.70 (mL/min/1.73m2); Glucose 132 mg/dL (74-106); Potassium 3.5 mmol/L (3.5-5.1); Sodium 141 mmol/L (136-145); Total Protein 7.0 g/dL (6.4-8.2)
--- NOTE | 2025-07-23 08:00 | RT.EKG_ITS ---
APPROVED REPORT Exam: Resting ECG Reason for Exam: Trauma Patient Location: E HR:63 bpm ECG Measurements Heart Rate 63 AXIS IA 105 P 67 QRSd 82 QRS 86 QT 398 T 72 QTc 408 Conclusion Sinus rhythm...normal P axis, V-rate 60- 99 Consider left ventricular hypertrophy...(S V1+R V5/V6) >3.25mV Nonspecific T abnrm, anterolateral leads...T <-0.10mV, I aVL V2-V6 No Occlusion ID
[2025-07-23 08:05] LABS: HCG Qual (Serum) Negative
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
[2025-07-23] MEDS: Omnipaque 350 MG/ML 100 ML BTL IJ (08:12)
[2025-07-23] MEDS: Normal Saline - Diluent 50 ML VIAL IJ (08:12)
[2025-07-23] MEDS: Normal Saline Flush 10 ML SYR IVP (08:12)
--- NOTE | 2025-07-23 08:17 | NUR.NOTE ---
Nursing Note: I spoke with Julissa at [facility] who confirmed that the patient last dosed with them yesterday 07/22/25 and her dosing is 16 mg of Suboxone.
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
[2025-07-23] MEDS: Buprenorphine/Naloxone 4 mg/1 mg FILM 1 EACH SL (08:46)
[2025-07-23] MEDS: Buprenorphine/Naloxone 12 mg/3 mg FILM 1 EACH SL (08:47)
[2025-07-23] MEDS: Ketamine 500 MG/10 ML VIAL 20 MG IVP ×2 (08:47→09:28)
[2025-07-23] MEDS: CLINDAMYCIN 300 MG/50 ML BAG 100 MG IVPB (09:14)
[2025-07-23] MEDS: Diph,Pertuss(Acell),Tet Vac/Pf 0.5 ML SYR IM (09:14)
== END 2025-07-23 09:37 | disposition short-term general hospital (02) ==
PROVIDERS: Emergency Provider Emergency Medicine; PCP Nurse Practitioner Family
DX: S01.81XA Laceration without foreign body of other part of head, initial encounter; Z23 Encounter for immunization; S06.6X0A Traumatic subarachnoid hemorrhage without loss of consciousness, initial encounter; S02.40CA Maxillary fracture, right side, initial encounter for closed fracture; V09.29XA Pedestrian injured in traffic accident involving other motor vehicles, initial encounter
CPT/HCPCS: 36415; 74177; 76604; 76705; 76857; 80053; 82805; 86850; 86900; 86901; 90471; 90715; 93005; 96365; 96375; 99285; 70450; 70486; 71260; 72125; 72128; 72131; 73560; 80320; 83605; 84703; 85025; 85610; 93010; J0736; J3010; J3490

== ENCOUNTER 2025-07-24 10:57 | Emergency (ER) | payer MEDICAID, SELFPAY ==
[2025-07-24 11:10] VITALS: BP 121/68; PULSE 95; RESP 24; TEMP 36.7; O2SAT 96
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
== END 2025-07-24 13:12 | disposition home or self-care (01) ==
PROVIDERS: Emergency Provider Physician Assistant; PCP Nurse Practitioner Family
DX: S06.6X0D Traumatic subarachnoid hemorrhage without loss of consciousness, subsequent encounter (principal); S02.40CD Maxillary fracture, right side, subsequent encounter for fracture with routine healing; S01.81XD Laceration without foreign body of other part of head, subsequent encounter; V00-Y99 External causes of morbidity
CPT/HCPCS: 99282

== ENCOUNTER 2025-07-26 08:44 | Emergency (ER) | payer MEDICAID, SELFPAY ==
--- NOTE | 2025-07-26 08:52 | DI.CT_ITS ---
Exam(s) CT HEAD WO EXAM: CT HEAD WO CLINICAL HISTORY: ? [facility] trauma three days ago. TECHNIQUE: Imaging Protocol: Axial computed tomography images with coronal and sagittal reformatted images were created and reviewed COMPARISON: CT CT HEAD CERV SPINE FACIAL WO from 07/23/2025 FINDINGS: Ventricles and Extra axial spaces: Normal in size and morphology for the patient's age. No subdural or epidural hemorrhage or fluid collection. Hemorrhage: The previously noted left temporal parietal subarachnoid hemorrhage is no longer visible. New areas of hemorrhage. Cerebral parenchyma: No evidence of acute infarct or mass. Midline shift: None. Brainstem/Cerebellum: Normal. Bones: No skull or facial fractures. Visualized Paranasal sinuses:Clear opacification of multiple ethmoid sinuses. Mastoids: Clear. Soft Tissues: Bilateral frontal soft tissue swelling. ORBITS: Unremarkable. PITUITARY: Not enlarged. IMPRESSION: No acute intracranial process. Resolution of previously noted subarachnoid hemorrhage. RADIATION DOSE DELIVERED: 819.92mGy.cm Total DLP DATA REPOSITORY: All CT scans at this facility are submitted to the National Radiology Data Registry (NRDR) Dose Index Registry (DIR) with the [employer] ([employer]). RADIATION OPTIMIZATION: All CT scans at this facility use at least one of these dose optimization techniques: automated exposure control; mA and/or kV adjustment per patient size (includes targeted exams where dose is matched to clinical indication); or iterative reconstruction.
[2025-07-26 08:54] VITALS: BP 102/66; PULSE 64; RESP 14; TEMP 35.5; O2SAT 99
[2025-07-26 08:59] VITALS: BP 102/66; PULSE 64; RESP 14; TEMP 35.5; O2SAT 99
--- NOTE | 2025-07-26 09:35 | DI.RAD_ITS ---
Exam(s) XR KNEE RT 3V AP,LAT,MANJINDER EXAM: XR KNEE RT 3V AP,LAT,MANJINDER CLINICAL HISTORY: r knee pain. TECHNIQUE: 2D digital imaging was performed. Three views. COMPARISON: No exams were available for comparison FINDINGS: BONES: On lateral view, there is a small sliver of bone seen at the posterior aspect of the tibial plateaus. No bony destructive lesion is seen. JOINTS: The knee is normally aligned. A small joint effusion is seen. SOFT TISSUE: Normal. IMPRESSION: Small fracture fragment from the posterior aspect of of the tibial plateau. Findings called to Dr. Wilburn of the Emergency Department. DATA REPOSITORY: RADIATION DOSE DELIVERED:
--- NOTE | 2025-07-26 10:00 | DI.CT_ITS ---
Exam(s) CT LOWER EXTREMITY RT WO EXAM: CT LOWER EXTREMITY RT WO CLINICAL HISTORY: abn xr ? tib plateau fx. TECHNIQUE: Imaging Protocol: Axial computed tomography images with coronal and sagittal reformatted images were created and reviewed. The field of view includes the distal femur through ankle. CONTRAST MATERIAL: Intravenous: Omnipaque 350 Contrast volume:structured data in ml Contrast route:IV - COMPARISON: CR XR KNEE RT 3V AP,LAT,MANJINDER from 07/26/2025 FINDINGS: Bones: There are small fracture fragments at the posterior margin of the tibial plateau, involving a very small portion of the articular surface. An additional nondisplaced fracture is seen at the anteromedial margin of the medial femoral condyle. No osteomyelitic changes are identified. No lytic or sclerotic lesions are identified. Joints: A moderate hemarthrosis is present. There is no significant joint space narrowing. No significant periarticular spurring. Soft Tissues: Edema in the subcutaneous fat around the knee and at the posterior foot. There is some fluid extending along muscle planes in the lower thigh and calf region. IMPRESSION: Small fracture fragment seen at the posterior margin of the tibial plateau, greater medially. Nondisplaced fracture at the anteromedial aspect of the medial femoral condyle. RADIATION DOSE DELIVERED: 280.34mGy.cm Total DLP DATA REPOSITORY: All CT scans at this facility are submitted to the National Radiology Data Registry (NRDR) Dose Index Registry (DIR) with the [employer] (ACR). RADIATION OPTIMIZATION: All CT scans at this facility use at least one of these dose optimization techniques: automated exposure control; mA and/or kV adjustment per patient size (includes targeted exams where dose is matched to clinical indication); or iterative reconstruction.
[2025-07-26] MEDS: Ketorolac 15 MG/ML VIAL IM (10:21)
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
== END 2025-07-26 11:48 | disposition home or self-care (01) ==
PROVIDERS: Emergency Provider Emergency Medicine; PCP Nurse Practitioner Family
DX: S82.141A Displaced bicondylar fracture of right tibia, initial encounter for closed fracture (principal); X58.XXXA Exposure to other specified factors, initial encounter
CPT/HCPCS: 99284 ×2; 96372; 73562; 70450; 73700; J1885

== ENCOUNTER 2025-07-31 10:49 | Emergency (ER) | payer MEDICAID, SELFPAY ==
[2025-07-31 11:35] VITALS: BP 127/79; PULSE 76; RESP 20; TEMP 36.7; O2SAT 96
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
== END 2025-07-31 12:39 | disposition home or self-care (01) ==
PROVIDERS: Emergency Provider Physician Assistant; PCP Nurse Practitioner Family
DX: Z48.02 Encounter for removal of sutures (principal)

== ENCOUNTER 2025-08-07 07:31 | Emergency (ER) | payer MEDICAID, SELFPAY ==
[2025-08-07 07:38] VITALS: BP 145/101; PULSE 99; RESP 18; TEMP 36.7; O2SAT 97
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
== END 2025-08-07 08:14 | disposition home or self-care (01) ==
PROVIDERS: Emergency Provider Emergency Medicine; PCP Nurse Practitioner Family
DX: S06.9XAA Unspecified intracranial injury with loss of consciousness status unknown, initial encounter (principal); V09.29XA Pedestrian injured in traffic accident involving other motor vehicles, initial encounter
CPT/HCPCS: 99283 ×2